=== PATIENT | female | born 1960 | race Caucasian/White ===

== ENCOUNTER 2018-11-20 23:00 | Inpatient (IN) ==
[2018-11-21] MEDS ORDERED: ALBUTEROL 2.5 MG/3 ML NEB RESP TX PRN (02:24)
[2018-11-21] MEDS ORDERED: ONDANSETRON 4 MG/2 ML VIAL IV PRN (02:24)
[2018-11-21] MEDS ORDERED: ACETAMINOPHEN 325 MG TABLET PO PRN (02:24)
[2018-11-21] MEDS ORDERED: CLORAZEPATE 7.5 MG TABLET PO PRN (02:31)
[2018-11-21] MEDS: LEVOFLOXACIN INJ 750 MG in PREMIX 1 EACH IV SCH (03:26)
[2018-11-21] MEDS: PIPERACILLIN/TAZOBACTAM 3,375 MG in SODIUM CHLORIDE 0.9% 100 ML IV SCH ×3 (05:41→22:47)
[2018-11-21 06:40] LABS: Basophils % 0.1 % (0.0-0.8); Hematocrit 32.2 VOL% (35.7-47.0); Hemoglobin 10.7 GM/DL (12.0-16.0); Immature Granulocytes % 1.1 %; Immature Granulocytes Absolute 0.23 #; Lymphocytes % 4.8 % (21.3-54.2); Mean Corpuscular HGB Conc 33.2 GM/DL (32-36); Mean Corpuscular Hemoglobin 28 PG (27-34); Mean Corpuscular Volume 83.4 FL (87-102); Mean Platelet Volume 8.6 FL (9.6-12.0); Monocytes # 1.3 10*3/uL (0.11-0.8); Monocytes % 6.1 % (1.7-12.7); Neutrophils % 87.9 % (38.7-73.9); Platelet Count 436 T/CUMM (130-400); Red Blood Count 3.86 MC/CUMM (3.8-5.5); Red Cell Distribution Width 14.1 % (9.3-17.3); White Blood Count 21.6 T/CUMM (4-12)
[2018-11-21] MEDS ORDERED: ALBUTEROL/IPRATROPIUM 3 ML NEB RESP TX SCH (07:00)
[2018-11-21 07:01] LABS: Alanine Aminotransferase 18 U/L (13-56); Albumin 2.3 G/DL (3.4-5.0); Alkaline Phosphatase 84 U/L (45-117); Aspartate Amino Transferase 21 U/L (0-37); Bilirubin,Total < 0.39 MG/DL (0.2-1.0); Blood Urea Nitrogen 12 MG/DL (7-18); Glucose 121 MG/DL (74-106); Osmolality,Calculated 262.7 MOS/KG (273-304); Potassium 3.6 MMOL/L (3.5-5.1); Sodium 131 MMOL/L (136-145); Total Protein 6.2 G/DL (6.4-8.3)
[2018-11-21 07:08] LABS: Band Neutrophils 1 % (0-10); Hypochromasia 1+; Lymphocytes 3 % (20-55); Ovalocytes Slight; Platelet Estimate Adequate; Segmented Neutrophils 91 % (50-85); Total Cells Counted 100
[2018-11-21] MEDS: LEVALBUTEROL 1.25 MG/3 ML NEB RESP TX SCH ×6 (07:23→21:55)
[2018-11-21] MEDS: CLORAZEPATE 3.75 MG TABLET PO PRN ×4 (08:50→22:48)
[2018-11-21] MEDS: DILTIAZEM CD 120 MG CAPSULE PO SCH (08:50)
[2018-11-21] MEDS: DOCUSATE SODIUM 100 MG CAPSULE PO SCH (08:50)
[2018-11-21] MEDS: PANTOPRAZOLE 40 MG TABLET PO SCH (08:50)
[2018-11-21] MEDS: ESCITALOPRAM 10 MG TABLET PO SCH (08:50)
[2018-11-21] MEDS: ENOXAPARIN 40 MG/0.4 ML SYRINGE SUBCUT SCH (08:54)
[2018-11-21] MEDS ORDERED: CETIRIZINE PO SCH (09:00)
[2018-11-21] MEDS ORDERED: PSEUDOEPHEDRINE PO SCH (09:00)
[2018-11-21] MEDS ORDERED: ETOPOSIDE 140 MG in SODIUM CHLORIDE 0.9% 500 ML IV SCH (09:00)
[2018-11-21] MEDS ORDERED: CARBOplatin 500 MG in SODIUM CHLORIDE 0.9% 250 ML IV ONE ×2 (09:30→12:00)
[2018-11-21] MEDS ORDERED: PALONOSETRON 0.25 MG/5 ML VIAL IV ONE ×2 (09:30→11:00)
[2018-11-21] MEDS ORDERED: DEXAMETHASONE 10 MG/1 ML VIAL IV ONE ×2 (09:30→11:00)
[2018-11-21] MEDS ORDERED: MAGNESIUM HYDROXIDE SUSP 30 ML UDCUP PO PRN (11:06)
[2018-11-21] MEDS ORDERED: ALUMINUM/MAGNES/SIMETH MAX STR 30 ML UDCUP PO PRN (11:06)
[2018-11-21] MEDS: ETOPOSIDE 140 MG in SODIUM CHLORIDE 0.9% 500 ML IV SCH (14:21)
[2018-11-21] MEDS ORDERED: diphenhydrAMINE CAP 50 MG CAPSULE PO PRN (17:37)
[2018-11-21] MEDS: ALLOPURINOL 300 MG TABLET PO SCH (18:32)
[2018-11-21] MEDS: FLUTICASONE 50 MCG NASAL SPRAY 16 GM BOTTLE BOTH NARES SCH (21:30)
[2018-11-21] MEDS: MELATONIN 3 MG TABLET PO SCH (21:30)
[2018-11-22] MEDS: LEVALBUTEROL 1.25 MG/3 ML NEB RESP TX SCH ×8 (00:34→22:59)
[2018-11-22] MEDS: LEVOFLOXACIN INJ 750 MG in PREMIX 1 EACH IV SCH (03:03)
[2018-11-22 04:17] LABS: Basophils % 0.1 % (0.0-0.8); Hematocrit 32.2 VOL% (35.7-47.0); Hemoglobin 10.2 GM/DL (12.0-16.0); Immature Granulocytes % 0.7 %; Lymphocytes # 0.7 10*3/uL (1.4-4.0); Lymphocytes % 4.3 % (21.3-54.2); Mean Corpuscular HGB Conc 31.7 GM/DL (32-36); Mean Corpuscular Hemoglobin 27 PG (27-34); Mean Corpuscular Volume 84.7 FL (87-102); Mean Platelet Volume 8.8 FL (9.6-12.0); Monocytes # 0.6 10*3/uL (0.11-0.8); Monocytes % 3.8 % (1.7-12.7); Neutrophils # 13.9 10*3/uL (1.4-7.4); Neutrophils % 91.1 % (38.7-73.9); Platelet Count 512 T/CUMM (130-400); Red Cell Distribution Width 14.2 % (9.3-17.3); White Blood Count 15.3 T/CUMM (4-12)
[2018-11-22 04:47] LABS: Calcium 9.2 MG/DL (8.5-10.1); Osmolality,Calculated 266.4 MOS/KG (273-304)
[2018-11-22 04:49] LABS: Band Neutrophils 1 % (0-10); Lymphocytes 4 % (20-55); Platelet Estimate Increased; Segmented Neutrophils 93 % (50-85); Total Cells Counted 100
[2018-11-22] MEDS: PIPERACILLIN/TAZOBACTAM 3,375 MG in SODIUM CHLORIDE 0.9% 100 ML IV SCH ×3 (05:49→21:53)
[2018-11-22] MEDS: DILTIAZEM CD 120 MG CAPSULE PO SCH (08:52)
[2018-11-22] MEDS: PANTOPRAZOLE 40 MG TABLET PO SCH (08:52)
[2018-11-22] MEDS: DOCUSATE SODIUM 100 MG CAPSULE PO SCH (08:52)
[2018-11-22] MEDS: ALLOPURINOL 300 MG TABLET PO SCH (08:52)
[2018-11-22] MEDS: ESCITALOPRAM 10 MG TABLET PO SCH (08:52)
[2018-11-22] MEDS: FLUTICASONE 50 MCG NASAL SPRAY 16 GM BOTTLE BOTH NARES SCH ×2 (08:53→21:52)
[2018-11-22] MEDS: ENOXAPARIN 40 MG/0.4 ML SYRINGE SUBCUT SCH (08:53)
[2018-11-22] MEDS: ETOPOSIDE 140 MG in SODIUM CHLORIDE 0.9% 500 ML IV SCH (10:50)
[2018-11-22] MEDS: MELATONIN 3 MG TABLET PO SCH (21:51)
[2018-11-22] MEDS: CLORAZEPATE 3.75 MG TABLET PO PRN (21:51)
[2018-11-23] MEDS: LEVALBUTEROL 1.25 MG/3 ML NEB RESP TX SCH ×8 (01:48→23:00)
[2018-11-23] MEDS: LEVOFLOXACIN INJ 750 MG in PREMIX 1 EACH IV SCH (03:07)
[2018-11-23] MEDS: PIPERACILLIN/TAZOBACTAM 3,375 MG in SODIUM CHLORIDE 0.9% 100 ML IV SCH ×3 (05:07→22:29)
[2018-11-23 06:14] LABS: Eosinophils % 0.4 % (0.00-10.9); Hematocrit 35.4 VOL% (35.7-47.0); Hemoglobin 11.1 GM/DL (12.0-16.0); Immature Granulocytes % 0.5 %; Immature Granulocytes Absolute 0.06 #; Lymphocytes # 1.7 10*3/uL (1.4-4.0); Mean Corpuscular HGB Conc 31.4 GM/DL (32-36); Mean Corpuscular Hemoglobin 27 PG (27-34); Mean Corpuscular Volume 84.7 FL (87-102); Mean Platelet Volume 8.6 FL (9.6-12.0); Monocytes # 0.6 10*3/uL (0.11-0.8); Monocytes % 5.6 % (1.7-12.7); Neutrophils # 8.7 10*3/uL (1.4-7.4); Neutrophils % 78.5 % (38.7-73.9); Platelet Count 507 T/CUMM (130-400); Red Blood Count 4.18 MC/CUMM (3.8-5.5); Red Cell Distribution Width 14.4 % (9.3-17.3); White Blood Count 11.1 T/CUMM (4-12)
[2018-11-23 06:35] LABS: Albumin 2.4 G/DL (3.4-5.0); Bilirubin,Direct 0.13 MG/DL (0.0-0.20); Bilirubin,Indirect 0.5 MG/DL (0.0-1.0); Bilirubin,Total 0.6 MG/DL (0.2-1.0); Calcium 9.1 MG/DL (8.5-10.1); Osmolality,Calculated 265.4 MOS/KG (273-304); Potassium 3.7 MMOL/L (3.5-5.1); Total Protein 6.2 G/DL (6.4-8.3)
[2018-11-23] MEDS: PANTOPRAZOLE 40 MG TABLET PO SCH (08:14)
[2018-11-23] MEDS: DOCUSATE SODIUM 100 MG CAPSULE PO SCH (08:14)
[2018-11-23] MEDS: ALLOPURINOL 300 MG TABLET PO SCH (08:14)
[2018-11-23] MEDS: ESCITALOPRAM 10 MG TABLET PO SCH (08:14)
[2018-11-23] MEDS: DILTIAZEM CD 120 MG CAPSULE PO SCH ×2 (08:14→20:04)
[2018-11-23] MEDS: ENOXAPARIN 40 MG/0.4 ML SYRINGE SUBCUT SCH (08:15)
[2018-11-23] MEDS: FLUTICASONE 50 MCG NASAL SPRAY 16 GM BOTTLE BOTH NARES SCH ×2 (08:22→20:09)
[2018-11-23] MEDS: ETOPOSIDE 140 MG in SODIUM CHLORIDE 0.9% 500 ML IV SCH (09:44)
[2018-11-23] MEDS ORDERED: METOPROLOL TARTRATE 5 MG/5 ML VIAL IV ONE (10:32)
[2018-11-23] MEDS: MELATONIN 3 MG TABLET PO SCH (20:05)
[2018-11-23] MEDS: CLORAZEPATE 3.75 MG TABLET PO PRN (20:16)
[2018-11-24] MEDS: LEVALBUTEROL 1.25 MG/3 ML NEB RESP TX SCH ×8 (00:58→22:06)
[2018-11-24] MEDS: LEVOFLOXACIN INJ 750 MG in PREMIX 1 EACH IV SCH (02:38)
[2018-11-24] MEDS: PIPERACILLIN/TAZOBACTAM 3,375 MG in SODIUM CHLORIDE 0.9% 100 ML IV SCH ×3 (06:18→21:19)
[2018-11-24 06:23] LABS: Basophils % 0.1 % (0.0-0.8); Eosinophils # 0.1 10*3/uL (0.0-0.87); Eosinophils % 0.9 % (0.00-10.9); Hematocrit 34.3 VOL% (35.7-47.0); Hemoglobin 10.9 GM/DL (12.0-16.0); Immature Granulocytes % 0.6 %; Immature Granulocytes Absolute 0.06 #; Lymphocytes % 9.9 % (21.3-54.2); Mean Corpuscular HGB Conc 31.8 GM/DL (32-36); Mean Corpuscular Hemoglobin 27 PG (27-34); Mean Corpuscular Volume 85.1 FL (87-102); Mean Platelet Volume 8.6 FL (9.6-12.0); Monocytes # 0.1 10*3/uL (0.11-0.8); Monocytes % 1.1 % (1.7-12.7); Neutrophils # 8.6 10*3/uL (1.4-7.4); Neutrophils % 87.4 % (38.7-73.9); Platelet Count 422 T/CUMM (130-400); Red Blood Count 4.03 MC/CUMM (3.8-5.5); Red Cell Distribution Width 14.3 % (9.3-17.3); White Blood Count 9.8 T/CUMM (4-12)
[2018-11-24 06:33] LABS: Calcium 8.6 MG/DL (8.5-10.1); Osmolality,Calculated 257.8 MOS/KG (273-304); Potassium 3.7 MMOL/L (3.5-5.1)
[2018-11-24] MEDS: METOPROLOL SUCCINATE XL 25 MG TABLET PO SCH (08:33)
[2018-11-24] MEDS: ALLOPURINOL 300 MG TABLET PO SCH (08:33)
[2018-11-24] MEDS: DOCUSATE SODIUM 100 MG CAPSULE PO SCH (08:33)
[2018-11-24] MEDS: ESCITALOPRAM 10 MG TABLET PO SCH (08:33)
[2018-11-24] MEDS: PANTOPRAZOLE 40 MG TABLET PO SCH (08:33)
[2018-11-24] MEDS: DILTIAZEM CD 120 MG CAPSULE PO SCH ×2 (08:34→21:17)
[2018-11-24] MEDS: ENOXAPARIN 40 MG/0.4 ML SYRINGE SUBCUT SCH (08:38)
[2018-11-24] MEDS: FLUTICASONE 50 MCG NASAL SPRAY 16 GM BOTTLE BOTH NARES SCH ×2 (08:44→21:19)
[2018-11-24] MEDS ORDERED: ASPIRIN EC 81 MG TABLET PO SCH (09:00)
[2018-11-24] MEDS: CLORAZEPATE 3.75 MG TABLET PO PRN (21:17)
[2018-11-24] MEDS: MELATONIN 3 MG TABLET PO SCH (21:17)
[2018-11-25] MEDS: LEVALBUTEROL 1.25 MG/3 ML NEB RESP TX SCH ×8 (00:53→22:27)
[2018-11-25] MEDS: LEVOFLOXACIN INJ 750 MG in PREMIX 1 EACH IV SCH (03:18)
[2018-11-25] MEDS: PIPERACILLIN/TAZOBACTAM 3,375 MG in SODIUM CHLORIDE 0.9% 100 ML IV SCH ×3 (05:20→21:39)
[2018-11-25 06:02] LABS: Basophils % 0.1 % (0.0-0.8); Eosinophils # 0.5 10*3/uL (0.0-0.87); Eosinophils % 4.2 % (0.00-10.9); Hematocrit 32.1 VOL% (35.7-47.0); Hemoglobin 10.2 GM/DL (12.0-16.0); Immature Granulocytes % 1.1 %; Immature Granulocytes Absolute 0.12 #; Lymphocytes # 1.2 10*3/uL (1.4-4.0); Lymphocytes % 10.8 % (21.3-54.2); Mean Corpuscular HGB Conc 31.8 GM/DL (32-36); Mean Corpuscular Hemoglobin 27 PG (27-34); Mean Platelet Volume 8.9 FL (9.6-12.0); Monocytes # 0.1 10*3/uL (0.11-0.8); Monocytes % 0.8 % (1.7-12.7); Neutrophils # 9.2 10*3/uL (1.4-7.4); Platelet Count 390 T/CUMM (130-400); Red Blood Count 3.82 MC/CUMM (3.8-5.5); Red Cell Distribution Width 14.1 % (9.3-17.3); White Blood Count 11.1 T/CUMM (4-12)
[2018-11-25 06:19] LABS: Calcium 8.6 MG/DL (8.5-10.1); Osmolality,Calculated 252.4 MOS/KG (273-304); Potassium 3.7 MMOL/L (3.5-5.1)
[2018-11-25 08:23] LABS: Platelet Estimate Normal
[2018-11-25] MEDS: ENOXAPARIN 40 MG/0.4 ML SYRINGE SUBCUT SCH (09:27)
[2018-11-25] MEDS: METOPROLOL SUCCINATE XL 25 MG TABLET PO SCH (09:27)
[2018-11-25] MEDS: DOCUSATE SODIUM 100 MG CAPSULE PO SCH (09:27)
[2018-11-25] MEDS: ALLOPURINOL 300 MG TABLET PO SCH (09:27)
[2018-11-25] MEDS: PANTOPRAZOLE 40 MG TABLET PO SCH (09:27)
[2018-11-25] MEDS: ESCITALOPRAM 10 MG TABLET PO SCH (09:27)
[2018-11-25] MEDS: DILTIAZEM CD 120 MG CAPSULE PO SCH ×2 (09:27→21:36)
[2018-11-25] MEDS: SODIUM CHLORIDE 0.9% 1,000 ML IV SCH (09:28)
[2018-11-25] MEDS: FLUTICASONE 50 MCG NASAL SPRAY 16 GM BOTTLE BOTH NARES SCH ×2 (09:28→21:38)
[2018-11-25] MEDS: MELATONIN 3 MG TABLET PO SCH (21:36)
[2018-11-25] MEDS: CLORAZEPATE 3.75 MG TABLET PO PRN (21:37)
[2018-11-26] MEDS: LEVALBUTEROL 1.25 MG/3 ML NEB RESP TX SCH ×8 (01:31→22:42)
[2018-11-26] MEDS: LEVOFLOXACIN INJ 750 MG in PREMIX 1 EACH IV SCH (03:08)
[2018-11-26 06:17] LABS: Basophils % 0.6 % (0.0-0.8); Eosinophils # 0.3 10*3/uL (0.0-0.87); Eosinophils % 4.9 % (0.00-10.9); Hematocrit 30.6 VOL% (35.7-47.0); Hemoglobin 9.8 GM/DL (12.0-16.0); Immature Granulocytes % 1.6 %; Lymphocytes % 15.2 % (21.3-54.2); Mean Corpuscular Hemoglobin 27 PG (27-34); Mean Corpuscular Volume 84.8 FL (87-102); Mean Platelet Volume 8.8 FL (9.6-12.0); Monocytes % 0.6 % (1.7-12.7); Neutrophils # 4.9 10*3/uL (1.4-7.4); Neutrophils % 77.1 % (38.7-73.9); Platelet Count 344 T/CUMM (130-400); Red Blood Count 3.61 MC/CUMM (3.8-5.5); White Blood Count 6.3 T/CUMM (4-12)
[2018-11-26] MEDS: PIPERACILLIN/TAZOBACTAM 3,375 MG in SODIUM CHLORIDE 0.9% 100 ML IV SCH (06:28)
[2018-11-26 06:53] LABS: Calcium 8.6 MG/DL (8.5-10.1); Osmolality,Calculated 258.8 MOS/KG (273-304); Potassium 4.1 MMOL/L (3.5-5.1)
[2018-11-26 06:58] LABS: Hypochromasia 1+; Microcytosis 1+
[2018-11-26 06:59] LABS: Platelet Estimate Normal; Target Cells Few
[2018-11-26] MEDS: ENOXAPARIN 40 MG/0.4 ML SYRINGE SUBCUT SCH (08:41)
[2018-11-26] MEDS: ESCITALOPRAM 10 MG TABLET PO SCH (08:41)
[2018-11-26] MEDS: METOPROLOL SUCCINATE XL 25 MG TABLET PO SCH (08:42)
[2018-11-26] MEDS: DOCUSATE SODIUM 100 MG CAPSULE PO SCH (08:42)
[2018-11-26] MEDS: PANTOPRAZOLE 40 MG TABLET PO SCH (08:42)
[2018-11-26] MEDS: FLUTICASONE 50 MCG NASAL SPRAY 16 GM BOTTLE BOTH NARES SCH ×2 (08:42→20:51)
[2018-11-26] MEDS: DILTIAZEM CD 120 MG CAPSULE PO SCH ×2 (08:42→20:50)
[2018-11-26] MEDS: SODIUM CHLORIDE 0.9% 1,000 ML IV SCH (18:01)
[2018-11-26] MEDS: MELATONIN 3 MG TABLET PO SCH (20:50)
[2018-11-26] MEDS: CLORAZEPATE 3.75 MG TABLET PO PRN (21:00)
[2018-11-27] MEDS: LEVALBUTEROL 1.25 MG/3 ML NEB RESP TX SCH ×8 (00:34→22:51)
[2018-11-27 05:50] LABS: Basophils # 0.1 10*3/uL (0.0-0.2); Basophils % 1.1 % (0.0-0.8); Eosinophils # 0.3 10*3/uL (0.0-0.87); Eosinophils % 5.5 % (0.00-10.9); Hematocrit 28.1 VOL% (35.7-47.0); Hemoglobin 8.7 GM/DL (12.0-16.0); Immature Granulocytes % 3.3 %; Immature Granulocytes Absolute 0.15 #; Lymphocytes # 0.8 10*3/uL (1.4-4.0); Lymphocytes % 17.3 % (21.3-54.2); Mean Corpuscular Hemoglobin 27 PG (27-34); Mean Corpuscular Volume 85.7 FL (87-102); Mean Platelet Volume 8.9 FL (9.6-12.0); Monocytes % 0.7 % (1.7-12.7); Neutrophils # 3.3 10*3/uL (1.4-7.4); Neutrophils % 72.1 % (38.7-73.9); Platelet Count 339 T/CUMM (130-400); Red Blood Count 3.28 MC/CUMM (3.8-5.5); Red Cell Distribution Width 14.2 % (9.3-17.3); White Blood Count 4.6 T/CUMM (4-12)
[2018-11-27 06:09] LABS: Calcium 8.4 MG/DL (8.5-10.1); Osmolality,Calculated 258.7 MOS/KG (273-304); Potassium 3.8 MMOL/L (3.5-5.1)
[2018-11-27 06:58] LABS: Platelet Estimate Adequate
[2018-11-27 06:59] LABS: Hypochromasia 1+; Microcytosis 1+
[2018-11-27] MEDS: DILTIAZEM CD 120 MG CAPSULE PO SCH ×2 (09:30→20:39)
[2018-11-27] MEDS: SODIUM CHLORIDE 0.9% 1,000 ML IV SCH (15:03)
[2018-11-27] MEDS: ESCITALOPRAM 10 MG TABLET PO SCH (15:05)
[2018-11-27] MEDS: DOCUSATE SODIUM 100 MG CAPSULE PO SCH (15:05)
[2018-11-27] MEDS: METOPROLOL SUCCINATE XL 25 MG TABLET PO SCH (15:05)
[2018-11-27] MEDS: ENOXAPARIN 40 MG/0.4 ML SYRINGE SUBCUT SCH (15:07)
[2018-11-27] MEDS: FLUTICASONE 50 MCG NASAL SPRAY 16 GM BOTTLE BOTH NARES SCH ×2 (15:08→20:40)
[2018-11-27] MEDS: PANTOPRAZOLE 40 MG TABLET PO SCH (15:08)
[2018-11-27 19:00] LABS: Alanine Aminotransferase 15 U/L (13-56); Albumin 2.1 G/DL (3.4-5.0); Alkaline Phosphatase 60 U/L (45-117); Aspartate Amino Transferase 31 U/L (0-37); Bilirubin,Total < 0.39 MG/DL (0.2-1.0); Blood Urea Nitrogen 5 MG/DL (7-18); Calcium 8.5 MG/DL (8.5-10.1); Glucose 95 MG/DL (74-106); Osmolality,Calculated 253.1 MOS/KG (273-304); Potassium 3.9 MMOL/L (3.5-5.1); Sodium 128 MMOL/L (136-145); Total Protein 5.9 G/DL (6.4-8.3)
[2018-11-27] MEDS: guaiFENesin 200 MG/10 ML UDCUP PO PRN (19:05)
[2018-11-27] MEDS: MELATONIN 3 MG TABLET PO SCH (20:39)
[2018-11-27] MEDS: CLORAZEPATE 3.75 MG TABLET PO PRN (20:40)
[2018-11-28] MEDS: LEVALBUTEROL 1.25 MG/3 ML NEB RESP TX SCH ×7 (01:04→22:26)
[2018-11-28 06:05] LABS: Eosinophils # 0.4 10*3/uL (0.0-0.87); Eosinophils % 9.5 % (0.00-10.9); Hematocrit 29.7 VOL% (35.7-47.0); Hemoglobin 9.5 GM/DL (12.0-16.0); Immature Granulocytes % 4.9 %; Immature Granulocytes Absolute 0.19 #; Lymphocytes # 0.8 10*3/uL (1.4-4.0); Lymphocytes % 21.5 % (21.3-54.2); Mean Corpuscular Hemoglobin 27 PG (27-34); Mean Corpuscular Volume 83.9 FL (87-102); Monocytes # 0.1 10*3/uL (0.11-0.8); Monocytes % 1.5 % (1.7-12.7); Neutrophils # 2.4 10*3/uL (1.4-7.4); Neutrophils % 61.6 % (38.7-73.9); Platelet Count 295 T/CUMM (130-400); Red Blood Count 3.54 MC/CUMM (3.8-5.5); Red Cell Distribution Width 13.9 % (9.3-17.3); White Blood Count 3.9 T/CUMM (4-12)
[2018-11-28 06:34] LABS: Calcium 8.6 MG/DL (8.5-10.1); Osmolality,Calculated 250.2 MOS/KG (273-304); Potassium 3.8 MMOL/L (3.5-5.1)
[2018-11-28 07:04] LABS: Hypochromasia 1+; Microcytosis 1+; Ovalocytes Slight; Platelet Estimate Adequate
[2018-11-28] MEDS: DILTIAZEM CD 120 MG CAPSULE PO SCH ×2 (08:30→21:34)
[2018-11-28] MEDS: DOCUSATE SODIUM 100 MG CAPSULE PO SCH (08:30)
[2018-11-28] MEDS: METOPROLOL SUCCINATE XL 25 MG TABLET PO SCH (08:30)
[2018-11-28] MEDS: PANTOPRAZOLE 40 MG TABLET PO SCH (08:30)
[2018-11-28] MEDS: FLUCONAZOLE 200 MG TABLET PO SCH (08:30)
[2018-11-28] MEDS: ESCITALOPRAM 10 MG TABLET PO SCH (08:30)
[2018-11-28] MEDS: ENOXAPARIN 40 MG/0.4 ML SYRINGE SUBCUT SCH (08:30)
[2018-11-28] MEDS: FLUTICASONE 50 MCG NASAL SPRAY 16 GM BOTTLE BOTH NARES SCH ×2 (08:34→21:34)
[2018-11-28] MEDS: CLORAZEPATE 3.75 MG TABLET PO PRN (13:07)
[2018-11-28] MEDS: SODIUM CHLORIDE 0.9% 1,000 ML IV SCH (13:08)
[2018-11-28] MEDS: guaiFENesin 200 MG/10 ML UDCUP PO PRN (15:37)
[2018-11-28] MEDS: MELATONIN 3 MG TABLET PO SCH (21:34)
[2018-11-29] MEDS: LEVALBUTEROL 1.25 MG/3 ML NEB RESP TX SCH ×8 (01:08→23:32)
[2018-11-29 05:14] LABS: Basophils % 0.7 % (0.0-0.8); Eosinophils # 0.3 10*3/uL (0.0-0.87); Eosinophils % 10.2 % (0.00-10.9); Hematocrit 32.1 VOL% (35.7-47.0); Hemoglobin 10.1 GM/DL (12.0-16.0); Immature Granulocytes % 1.3 %; Immature Granulocytes Absolute 0.04 #; Lymphocytes # 1.1 10*3/uL (1.4-4.0); Lymphocytes % 34.4 % (21.3-54.2); Mean Corpuscular HGB Conc 31.5 GM/DL (32-36); Mean Corpuscular Hemoglobin 26 PG (27-34); Mean Platelet Volume 8.6 FL (9.6-12.0); Monocytes # 0.1 10*3/uL (0.11-0.8); Monocytes % 2.6 % (1.7-12.7); Neutrophils # 1.6 10*3/uL (1.4-7.4); Neutrophils % 50.8 % (38.7-73.9); Platelet Count 249 T/CUMM (130-400); Red Blood Count 3.82 MC/CUMM (3.8-5.5); Red Cell Distribution Width 13.7 % (9.3-17.3); White Blood Count 3.1 T/CUMM (4-12)
[2018-11-29 05:39] LABS: Calcium 8.7 MG/DL (8.5-10.1); Osmolality,Calculated 252.2 MOS/KG (273-304); Potassium 3.7 MMOL/L (3.5-5.1)
[2018-11-29 05:56] LABS: Eosinophils 8 % (0-10); Hypochromasia 1+; Lymphocytes 38 % (20-55); Platelet Estimate Adequate; Segmented Neutrophils 48 % (50-85); Total Cells Counted 100
[2018-11-29 05:57] LABS: Atypical Lymphocytes Few; Microcytosis 1+
[2018-11-29] MEDS: CLORAZEPATE 3.75 MG TABLET PO PRN (07:55)
[2018-11-29] MEDS: NYSTATIN 500,000 UNIT/5 ML UDCUP SWISH/SWAL SCH (08:35)
[2018-11-29] MEDS: ESCITALOPRAM 10 MG TABLET PO SCH (08:38)
[2018-11-29] MEDS: DILTIAZEM CD 120 MG CAPSULE PO SCH ×2 (08:39→20:49)
[2018-11-29] MEDS: METOPROLOL SUCCINATE XL 25 MG TABLET PO SCH (08:39)
[2018-11-29] MEDS: PANTOPRAZOLE 40 MG TABLET PO SCH (08:39)
[2018-11-29] MEDS: DOCUSATE SODIUM 100 MG CAPSULE PO SCH (08:39)
[2018-11-29] MEDS: FLUCONAZOLE 200 MG TABLET PO SCH (08:39)
[2018-11-29] MEDS: FLUTICASONE 50 MCG NASAL SPRAY 16 GM BOTTLE BOTH NARES SCH ×2 (08:39→20:50)
[2018-11-29] MEDS: ENOXAPARIN 40 MG/0.4 ML SYRINGE SUBCUT SCH (08:39)
[2018-11-29] MEDS: SODIUM CHLORIDE 0.9% 1,000 ML IV SCH (08:43)
[2018-11-29] MEDS ORDERED: SODIUM CHLORIDE 0.65% NASAL SPRAY 45 ML BOTTLE BOTH NARES PRN (08:52)
[2018-11-29] MEDS: FILGRASTIM-SNDZ 300 MCG/0.5 ML SYRINGE SUBCUT SCH (10:06)
[2018-11-29] MEDS: MELATONIN 3 MG TABLET PO SCH (20:49)
[2018-11-30] MEDS: LEVALBUTEROL 1.25 MG/3 ML NEB RESP TX SCH ×3 (02:48→08:33)
[2018-11-30] MEDS: SODIUM CHLORIDE 0.9% 1,000 ML IV SCH (03:00)
[2018-11-30 04:58] LABS: Basophils % 0.5 % (0.0-0.8); Eosinophils # 0.3 10*3/uL (0.0-0.87); Eosinophils % 6.9 % (0.00-10.9); Hematocrit 26.7 VOL% (35.7-47.0); Hemoglobin 8.6 GM/DL (12.0-16.0); Immature Granulocytes % 0.8 %; Immature Granulocytes Absolute 0.03 #; Lymphocytes # 0.9 10*3/uL (1.4-4.0); Lymphocytes % 24.2 % (21.3-54.2); Mean Corpuscular HGB Conc 32.2 GM/DL (32-36); Mean Corpuscular Hemoglobin 27 PG (27-34); Mean Corpuscular Volume 83.2 FL (87-102); Mean Platelet Volume 9.1 FL (9.6-12.0); Monocytes # 0.2 10*3/uL (0.11-0.8); Monocytes % 4.9 % (1.7-12.7); Neutrophils # 2.3 10*3/uL (1.4-7.4); Neutrophils % 62.7 % (38.7-73.9); Platelet Count 222 T/CUMM (130-400); Red Blood Count 3.21 MC/CUMM (3.8-5.5); Red Cell Distribution Width 13.6 % (9.3-17.3); White Blood Count 3.6 T/CUMM (4-12)
[2018-11-30 05:17] LABS: Calcium 8.6 MG/DL (8.5-10.1); Osmolality,Calculated 249.4 MOS/KG (273-304); Potassium 3.8 MMOL/L (3.5-5.1)
[2018-11-30 05:23] LABS: Hypochromasia 1+; Platelet Estimate Adequate
[2018-11-30 05:24] LABS: Microcytosis 1+
[2018-11-30] MEDS: ESCITALOPRAM 10 MG TABLET PO SCH (08:45)
[2018-11-30] MEDS: DOCUSATE SODIUM 100 MG CAPSULE PO SCH (08:45)
[2018-11-30] MEDS: PANTOPRAZOLE 40 MG TABLET PO SCH (08:45)
[2018-11-30] MEDS: DILTIAZEM CD 120 MG CAPSULE PO SCH (08:45)
[2018-11-30] MEDS: FLUCONAZOLE 200 MG TABLET PO SCH (08:45)
[2018-11-30] MEDS: METOPROLOL SUCCINATE XL 25 MG TABLET PO SCH (08:45)
[2018-11-30] MEDS: ENOXAPARIN 40 MG/0.4 ML SYRINGE SUBCUT SCH (08:49)
[2018-11-30] MEDS: FILGRASTIM-SNDZ 300 MCG/0.5 ML SYRINGE SUBCUT SCH (08:50)
[2018-11-30] MEDS: FLUTICASONE 50 MCG NASAL SPRAY 16 GM BOTTLE BOTH NARES SCH (08:59)
[2018-11-30] MEDS ORDERED: ALBUTEROL 2.5 MG/3 ML NEB RESP TX SCH (10:00)
[2018-11-30 13:16] VITALS: BP 116/71
== END 2018-11-30 14:10 | disposition home or self-care (01) | DRG 136 ==
LOC: SUATTDRO 11-21 01:44 → N.CC 11-21 01:44 → N.4E 11-21 10:39
PROVIDERS: ADMIT Internal Medicine; ATTEND Hospitalist

== ENCOUNTER 2018-12-17 16:31 | Inpatient (IN) ==
[2018-12-17 17:09] LABS: Basophils % 0.6 % (0.0-0.8); Eosinophils % 0.6 % (0.00-10.9); Hematocrit 37.5 VOL% (35.7-47.0); Hemoglobin 12.1 GM/DL (12.0-16.0); Immature Granulocytes % 0.7 %; Immature Granulocytes Absolute 0.05 #; Lymphocytes # 0.5 10*3/uL (1.4-4.0); Lymphocytes % 6.8 % (21.3-54.2); Mean Corpuscular HGB Conc 32.3 GM/DL (32-36); Mean Corpuscular Hemoglobin 27 PG (27-34); Mean Corpuscular Volume 83.1 FL (87-102); Mean Platelet Volume 8.7 FL (9.6-12.0); Monocytes # 0.1 10*3/uL (0.11-0.8); Monocytes % 1.6 % (1.7-12.7); Neutrophils # 6.1 10*3/uL (1.4-7.4); Neutrophils % 89.7 % (38.7-73.9); Platelet Count 417 T/CUMM (130-400); Red Blood Count 4.51 MC/CUMM (3.8-5.5); White Blood Count 6.8 T/CUMM (4-12)
[2018-12-17 17:29] LABS: PT Patient Result 10.8 SECS
[2018-12-17 17:38] LABS: Alanine Aminotransferase 17 U/L (13-56); Albumin 3.2 G/DL (3.4-5.0); Alkaline Phosphatase 87 U/L (45-117); Aspartate Amino Transferase 24 U/L (0-37); Blood Urea Nitrogen 16 MG/DL (7-18); Calcium 9.6 MG/DL (8.5-10.1); Glucose 109 MG/DL (74-106); Osmolality,Calculated 274.8 MOS/KG (273-304); Potassium 3.3 MMOL/L (3.5-5.1); Sodium 137 MMOL/L (136-145); Total Protein 7.4 G/DL (6.4-8.3); Troponin I < 0.015 NG/ML (0.00-0.045)
[2018-12-17] MEDS ORDERED: SODIUM CHLORIDE 0.9% 2,000 ML IV STA (18:53)
[2018-12-17] MEDS ORDERED: LORazepam 2 MG/1 ML VIAL IV STA (18:54)
[2018-12-17] MEDS ORDERED: METOCLOPRAMIDE 10 MG/2 ML VIAL IV STA (18:54)
[2018-12-17] MEDS ORDERED: ACETAMINOPHEN 325 MG TABLET PO PRN (21:41)
[2018-12-17] MEDS ORDERED: LORazepam 2 MG/1 ML VIAL IV PRN (21:57)
[2018-12-17] MEDS ORDERED: CLORAZEPATE 7.5 MG TABLET PO PRN (22:02)
[2018-12-17] MEDS ORDERED: PSEUDOEPHEDRINE 30 MG TABLET PO PRN (22:02)
[2018-12-17] MEDS ORDERED: MELATONIN 3 MG TABLET PO PRN (22:02)
[2018-12-17] MEDS ORDERED: MAGNESIUM HYDROXIDE SUSP 30 ML UDCUP PO PRN (22:02)
[2018-12-17] MEDS ORDERED: ALBUTEROL/IPRATROPIUM 3 ML NEB RESP TX PRN (22:02)
[2018-12-17] MEDS ORDERED: FLUTICASONE 50 MCG NASAL SPRAY 16 GM BOTTLE BOTH NARES PRN (22:02)
[2018-12-17] MEDS ORDERED: SODIUM CHLORIDE 0.65% NASAL SPRAY 45 ML BOTTLE BOTH NARES PRN (22:02)
[2018-12-17] MEDS ORDERED: HYDROmorphone 2 MG/1 ML VIAL IV PRN (22:06)
[2018-12-17] MEDS ORDERED: POTASSIUM CHLORIDE RIDER 10 MEQ in PREMIX 1 EACH IV PRN (22:27)
[2018-12-17] MEDS ORDERED: CETIRIZINE 10 MG TABLET PO PRN (22:45)
[2018-12-17] MEDS: SODIUM CHLORIDE 0.9% 1,000 ML IV SCH (23:17)
[2018-12-17] MEDS: LEVOFLOXACIN INJ 750 MG in PREMIX 1 EACH IV SCH (23:17)
[2018-12-17] MEDS: PANTOPRAZOLE 40 MG VIAL IV SCH (23:32)
[2018-12-17] MEDS: METOPROLOL SUCCINATE XL 25 MG TABLET PO SCH (23:33)
[2018-12-17] MEDS: ENOXAPARIN 40 MG/0.4 ML SYRINGE SUBCUT SCH (23:34)
[2018-12-18] MEDS: PIPERACILLIN/TAZOBACTAM 3,375 MG in SODIUM CHLORIDE 0.9% 100 ML IV SCH ×3 (02:02→17:47)
[2018-12-18 04:58] LABS: Basophils % 0.7 % (0.0-0.8); Eosinophils % 0.5 % (0.00-10.9); Hematocrit 29.7 VOL% (35.7-47.0); Hemoglobin 9.6 GM/DL (12.0-16.0); Immature Granulocytes % 1.6 %; Immature Granulocytes Absolute 0.07 #; Lymphocytes # 0.3 10*3/uL (1.4-4.0); Lymphocytes % 6.2 % (21.3-54.2); Mean Corpuscular HGB Conc 32.3 GM/DL (32-36); Mean Corpuscular Hemoglobin 27 PG (27-34); Mean Corpuscular Volume 83.9 FL (87-102); Mean Platelet Volume 9.3 FL (9.6-12.0); Monocytes # 0.1 10*3/uL (0.11-0.8); Monocytes % 2.3 % (1.7-12.7); Neutrophils # 3.9 10*3/uL (1.4-7.4); Neutrophils % 88.7 % (38.7-73.9); Platelet Count 296 T/CUMM (130-400); Red Blood Count 3.54 MC/CUMM (3.8-5.5); White Blood Count 4.3 T/CUMM (4-12)
[2018-12-18 05:13] LABS: Calcium 8.3 MG/DL (8.5-10.1); Osmolality,Calculated 277.4 MOS/KG (273-304); Potassium 3.2 MMOL/L (3.5-5.1)
[2018-12-18] MEDS: DOCUSATE SODIUM 100 MG CAPSULE PO SCH (08:43)
[2018-12-18] MEDS: DILTIAZEM CD 120 MG CAPSULE PO SCH (08:44)
[2018-12-18] MEDS: ESCITALOPRAM 10 MG TABLET PO SCH (08:44)
[2018-12-18] MEDS: POTASSIUM CHLORIDE INJ 10 MEQ in LACTATED RINGERS 1,000 ML IV SCH (09:21)
[2018-12-18] MEDS: PROMETHAZINE INJ 25 MG in SODIUM CHLORIDE 0.9% 50 ML IV PRN (09:48)
[2018-12-18] MEDS: PANTOPRAZOLE 40 MG VIAL IV SCH ×2 (10:39→20:52)
[2018-12-18] MEDS ORDERED: MYLANTA/LIDO VISC 2:1 300 ML BOTTLE SWISH/SWAL PRN (14:41)
[2018-12-18] MEDS: MYLANTA/LIDO VISC/DIPH 300 ML BOTTLE SWISH/SWAL SCH ×2 (17:37→20:55)
[2018-12-18] MEDS: ONDANSETRON 4 MG/2 ML VIAL IV PRN (17:41)
[2018-12-18] MEDS: METOPROLOL SUCCINATE XL 25 MG TABLET PO SCH (20:51)
[2018-12-18] MEDS: LEVOFLOXACIN INJ 750 MG in PREMIX 1 EACH IV SCH (23:08)
[2018-12-18] MEDS: ENOXAPARIN 40 MG/0.4 ML SYRINGE SUBCUT SCH (23:11)
[2018-12-19] MEDS: PIPERACILLIN/TAZOBACTAM 3,375 MG in SODIUM CHLORIDE 0.9% 100 ML IV SCH ×3 (01:03→17:42)
[2018-12-19] MEDS: ONDANSETRON 4 MG/2 ML VIAL IV PRN ×2 (02:45→13:16)
[2018-12-19 04:02] LABS: Hematocrit 30.6 VOL% (35.7-47.0); Hemoglobin 9.5 GM/DL (12.0-16.0); Immature Granulocytes % 1.7 %; Immature Granulocytes Absolute 0.05 #; Lymphocytes # 0.4 10*3/uL (1.4-4.0); Lymphocytes % 12.1 % (21.3-54.2); Mean Corpuscular Hemoglobin 27 PG (27-34); Mean Corpuscular Volume 85.5 FL (87-102); Mean Platelet Volume 9.4 FL (9.6-12.0); Monocytes # 0.1 10*3/uL (0.11-0.8); Monocytes % 4.8 % (1.7-12.7); Neutrophils # 2.3 10*3/uL (1.4-7.4); Neutrophils % 79.4 % (38.7-73.9); Platelet Count 258 T/CUMM (130-400); Red Blood Count 3.58 MC/CUMM (3.8-5.5); White Blood Count 2.9 T/CUMM (4-12)
[2018-12-19 04:19] LABS: Osmolality,Calculated 278.3 MOS/KG (273-304); Potassium 3.4 MMOL/L (3.5-5.1)
[2018-12-19] MEDS: PROMETHAZINE INJ 25 MG in SODIUM CHLORIDE 0.9% 50 ML IV PRN (07:02)
[2018-12-19] MEDS: MYLANTA/LIDO VISC/DIPH 300 ML BOTTLE SWISH/SWAL SCH ×3 (07:30→17:43)
[2018-12-19] MEDS ORDERED: FILGRASTIM-SNDZ 300 MCG/0.5 ML SYRINGE SUBCUT SCH (09:00)
[2018-12-19] MEDS: DILTIAZEM CD 120 MG CAPSULE PO SCH (09:33)
[2018-12-19] MEDS: DOCUSATE SODIUM 100 MG CAPSULE PO SCH (09:35)
[2018-12-19] MEDS: ESCITALOPRAM 10 MG TABLET PO SCH (09:35)
[2018-12-19] MEDS: POTASSIUM CHLORIDE INJ 10 MEQ in LACTATED RINGERS 1,000 ML IV SCH ×2 (10:51→17:44)
[2018-12-19] MEDS: PANTOPRAZOLE 40 MG VIAL IV SCH (10:52)
[2018-12-19 16:05] VITALS: BP 90/60
[2018-12-19] MEDS: SODIUM CHLORIDE 0.9% 1,000 ML IV SCH (17:44)
== END 2018-12-19 17:10 | disposition home or self-care (01) | DRG 249 ==
LOC: N.ED 16:31 → N.EDINP 16:31 → N.4E 22:35
PROVIDERS: ADMIT Family Medicine; ATTEND Family Medicine

== ENCOUNTER 2018-12-20 14:34 | Observation (INO) ==
[2018-12-20 14:57] LABS: Basophils % 0.5 % (0.0-0.8); Eosinophils # 0.1 10*3/uL (0.0-0.87); Eosinophils % 0.6 % (0.00-10.9); Hematocrit 30.4 VOL% (35.7-47.0); Hemoglobin 9.7 GM/DL (12.0-16.0); Immature Granulocytes % 2.5 %; Lymphocytes # 0.4 10*3/uL (1.4-4.0); Lymphocytes % 5.5 % (21.3-54.2); Mean Corpuscular HGB Conc 31.9 GM/DL (32-36); Mean Corpuscular Hemoglobin 27 PG (27-34); Mean Corpuscular Volume 84.2 FL (87-102); Mean Platelet Volume 8.8 FL (9.6-12.0); Monocytes # 0.4 10*3/uL (0.11-0.8); Monocytes % 4.9 % (1.7-12.7); Neutrophils # 6.9 10*3/uL (1.4-7.4); Platelet Count 181 T/CUMM (130-400); Red Blood Count 3.61 MC/CUMM (3.8-5.5); Red Cell Distribution Width 15.1 % (9.3-17.3)
[2018-12-20 15:18] LABS: Albumin 2.6 G/DL (3.4-5.0); Bilirubin,Total 0.9 MG/DL (0.2-1.0); Osmolality,Calculated 278.3 MOS/KG (273-304); Potassium 3.4 MMOL/L (3.5-5.1); Total Protein 6.1 G/DL (6.4-8.3)
[2018-12-20 15:47] LABS: Band Neutrophils 2 % (0-10); Lymphocytes 4 % (20-55); Segmented Neutrophils 90 % (50-85); Total Cells Counted 100
[2018-12-20 15:48] LABS: Platelet Estimate Adequate
[2018-12-20 15:53] LABS: Apearance,Urine CLOUDY (Clear); Bilirubin,Urine Negative (Negative); Blood, Urine Negative (Negative); Calcium Oxalate Crystals,Urine Occasional /HPF (Few); Glucose,Urine (UA) Negative (Negative); Ketones,Urine 20 mg/dL (Negative); Mucus,Urine Many /LPF (Occasional); Nitrite,Urine Negative (Negative); Protein,Urine Negative; RBC,Urine 3 /HPF (0-4); Squamous Epithelial Cell,Urine Occasional /HPF (0-10); Urine Color Amber (Yellow); Urine Specific Gravity 1.024 (1.001-1.035); WBC,Urine 3 /HPF (0-6)
[2018-12-20 16:12] LABS: Barbiturates Screen,Urine Negative (Negative); Benzodiazepines Screen,Urine Positive (Negative); Cannabinoid Screen,Urine Negative (Negative); Opiate Screen,Urine Positive (Negative); Phencyclidine Screen,Urine Positive (Negative)
[2018-12-20] MEDS ORDERED: ACETAMINOPHEN 325 MG TABLET PO PRN (16:19)
[2018-12-20] MEDS ORDERED: PROMETHAZINE 25 MG/1 ML VIAL IM PRN (16:19)
[2018-12-20] MEDS ORDERED: ALBUTEROL/IPRATROPIUM 3 ML NEB RESP TX PRN (16:21)
[2018-12-20] MEDS ORDERED: SODIUM CHLORIDE 0.65% NASAL SPRAY 45 ML BOTTLE BOTH NARES PRN (16:21)
[2018-12-20] MEDS ORDERED: PSEUDOEPHEDRINE PO PRN (16:21)
[2018-12-20] MEDS ORDERED: CETIRIZINE PO PRN (16:21)
[2018-12-20] MEDS ORDERED: PROMETHAZINE 25 MG TABLET PO PRN (16:21)
[2018-12-20] MEDS ORDERED: FLUTICASONE 50 MCG NASAL SPRAY 16 GM BOTTLE BOTH NARES PRN (16:21)
[2018-12-20] MEDS ORDERED: MAGNESIUM HYDROXIDE SUSP 30 ML UDCUP PO PRN (16:21)
[2018-12-20] MEDS ORDERED: POTASSIUM CHLORIDE 20 MEQ TABLET PO ONE (17:12)
[2018-12-20] MEDS: ONDANSETRON 4 MG/2 ML VIAL IV PRN (17:57)
[2018-12-20] MEDS: SODIUM CHLORIDE 0.9% 1,000 ML IV SCH (20:42)
[2018-12-20] MEDS: CLORAZEPATE 3.75 MG TABLET PO PRN (20:56)
[2018-12-20] MEDS: METOPROLOL SUCCINATE XL 25 MG TABLET PO SCH ×2 (20:56→22:36)
[2018-12-21] MEDS: SODIUM CHLORIDE 0.9% 1,000 ML IV SCH ×3 (04:10→23:20)
[2018-12-21 04:30] LABS: Basophils % 0.4 % (0.0-0.8); Eosinophils # 0.1 10*3/uL (0.0-0.87); Eosinophils % 0.9 % (0.00-10.9); Hematocrit 31.3 VOL% (35.7-47.0); Hemoglobin 9.7 GM/DL (12.0-16.0); Immature Granulocytes % 1.5 %; Lymphocytes # 0.6 10*3/uL (1.4-4.0); Lymphocytes % 8.6 % (21.3-54.2); Mean Corpuscular Hemoglobin 26 PG (27-34); Mean Corpuscular Volume 85.1 FL (87-102); Mean Platelet Volume 9.2 FL (9.6-12.0); Monocytes # 0.4 10*3/uL (0.11-0.8); Monocytes % 6.3 % (1.7-12.7); Neutrophils # 5.7 10*3/uL (1.4-7.4); Neutrophils % 82.3 % (38.7-73.9); Platelet Count 179 T/CUMM (130-400); Red Blood Count 3.68 MC/CUMM (3.8-5.5); Red Cell Distribution Width 15.3 % (9.3-17.3); White Blood Count 6.9 T/CUMM (4-12)
[2018-12-21 05:00] LABS: Calcium 8.6 MG/DL (8.5-10.1); Osmolality,Calculated 279.1 MOS/KG (273-304); Potassium 3.2 MMOL/L (3.5-5.1)
[2018-12-21] MEDS: ONDANSETRON 4 MG/2 ML VIAL IV PRN ×5 (05:14→23:55)
[2018-12-21 05:41] LABS: Band Neutrophils 3 % (0-10); Lymphocytes 8 % (20-55); Platelet Estimate Normal; Segmented Neutrophils 84 % (50-85); Total Cells Counted 100
[2018-12-21 05:42] LABS: Anisocytosis 1+; Macrocytosis 1+; Polychromasia 1+
[2018-12-21] MEDS ORDERED: POTASSIUM CHLORIDE 20 MEQ TABLET PO ONE ×2 (06:49→12:00)
[2018-12-21] MEDS: DILTIAZEM CD 120 MG CAPSULE PO SCH (08:41)
[2018-12-21] MEDS: PANTOPRAZOLE 40 MG TABLET PO SCH (08:42)
[2018-12-21] MEDS: DOCUSATE SODIUM 100 MG CAPSULE PO SCH (08:42)
[2018-12-21] MEDS: LEVOFLOXACIN INJ 500 MG in PREMIX 1 EACH IV SCH (08:42)
[2018-12-21] MEDS: CLORAZEPATE 3.75 MG TABLET PO PRN (08:49)
[2018-12-21] MEDS ORDERED: PANTOPRAZOLE 40 MG TABLET PO SCH (09:00)
[2018-12-21] MEDS ORDERED: LEVOFLOXACIN 500 MG TABLET PO SCH (09:00)
[2018-12-21] MEDS: SERTRALINE 25 MG TABLET PO SCH (12:24)
[2018-12-21] MEDS: MYLANTA/LIDO VISC/NYST 180 ML BOTTLE SWISH/SWAL SCH ×3 (12:24→20:23)
[2018-12-21] MEDS: METOPROLOL SUCCINATE XL 25 MG TABLET PO SCH (20:22)
[2018-12-22] MEDS: ONDANSETRON 4 MG/2 ML VIAL IV PRN (04:00)
[2018-12-22 06:06] LABS: Calcium 8.6 MG/DL (8.5-10.1); Osmolality,Calculated 274.4 MOS/KG (273-304)
[2018-12-22] MEDS ORDERED: MAGNESIUM SULF RIDER 2 GM in PREMIX 1 EACH IV ONE (07:06)
[2018-12-22] MEDS: LEVOFLOXACIN INJ 500 MG in PREMIX 1 EACH IV SCH (09:09)
[2018-12-22] MEDS: POTASSIUM CHLORIDE 20 MEQ TABLET PO SCH ×2 (09:10→12:45)
[2018-12-22] MEDS: SERTRALINE 25 MG TABLET PO SCH (09:10)
[2018-12-22] MEDS: PANTOPRAZOLE 40 MG TABLET PO SCH (09:10)
[2018-12-22] MEDS: DILTIAZEM CD 120 MG CAPSULE PO SCH (09:10)
[2018-12-22] MEDS: MYLANTA/LIDO VISC/NYST 180 ML BOTTLE SWISH/SWAL SCH ×2 (09:10→12:58)
[2018-12-22] MEDS: DOCUSATE SODIUM 100 MG CAPSULE PO SCH (09:11)
[2018-12-22 12:52] VITALS: BP 98/54
[2018-12-22] MEDS ORDERED: POTASSIUM CHLORIDE 20 MEQ/15 ML UDCUP PO SCH (13:00)
== END 2018-12-22 15:05 | disposition home or self-care (01) ==
LOC: EDUNIT# → EDBD → N.ED 14:34 → INTOOBSV 15:37 → N.EDINP 15:37 → N.4E 16:29
PROVIDERS: ADMIT Family Medicine; ATTEND Family Medicine

== ENCOUNTER 2019-02-28 17:10 | Observation (INO) ==
[2019-02-28] MEDS ORDERED: ONDANSETRON 4 MG/2 ML VIAL IV STA (19:38)
[2019-02-28] MEDS ORDERED: MECLIZINE 25 MG TABLET PO STA (19:38)
[2019-02-28] MEDS ORDERED: SODIUM CHLORIDE 0.9% 500 ML IV STA (19:38)
[2019-02-28 21:01] LABS: Eosinophils % 0.2 % (0.00-10.9); Hemoglobin 8.5 GM/DL (12.0-16.0); Immature Granulocytes % 0.5 %; Immature Granulocytes Absolute 0.03 #; Lymphocytes # 0.6 10*3/uL (1.4-4.0); Lymphocytes % 10.7 % (21.3-54.2); Mean Corpuscular HGB Conc 32.7 GM/DL (32-36); Mean Corpuscular Volume 89.7 FL (87-102); Mean Platelet Volume 8.4 FL (9.6-12.0); Monocytes % 1.6 % (1.7-12.7); Platelet Count 216 T/CUMM (130-400); Red Cell Distribution Width 17.4 % (9.3-17.3); White Blood Count 5.8 T/CUMM (4-12)
[2019-02-28 21:10] LABS: INR 0.9; PT Patient Result 9.9 SECS
[2019-02-28 21:22] LABS: Apearance,Urine CLEAR (Clear); Bacteria,Urine Occasional /HPF (Few); Bilirubin,Urine Negative (Negative); Blood, Urine Negative (Negative); Glucose,Urine (UA) Negative (Negative); Hyaline Casts,Urine 3 /LPF (0-3); Ketones,Urine Negative (Negative); Mucus,Urine Occasional /LPF (Occasional); Nitrite,Urine Negative (Negative); Protein,Urine Negative; RBC,Urine 2 /HPF (0-4); Squamous Epithelial Cell,Urine Occasional /HPF (0-10); Urine Color Yellow (Yellow); Urine Specific Gravity 1.016 (1.001-1.035); WBC,Urine 10 /HPF (0-6)
[2019-02-28 21:37] LABS: Albumin 2.9 G/DL (3.4-5.0); Bilirubin,Total 0.5 MG/DL (0.2-1.0); Calcium 8.4 MG/DL (8.5-10.1); Osmolality,Calculated 257.8 MOS/KG (273-304); Thyroid Stimulating Hormone 1.13 uIU/ml (0.358-3.74); Total Protein 5.9 G/DL (6.4-8.3)
[2019-02-28] MEDS ORDERED: cefTRIAXone 1,000 MG in SODIUM CHLORIDE 0.9% 100 ML IV STA (22:45)
[2019-03-01] MEDS ORDERED: ACETAMINOPHEN 325 MG TABLET PO PRN (01:51)
[2019-03-01] MEDS ORDERED: MAGNESIUM SULF RIDER 2 GM in PREMIX 1 EACH IV PRN (01:51)
[2019-03-01] MEDS ORDERED: PROMETHAZINE 25 MG/1 ML VIAL IM PRN (01:51)
[2019-03-01] MEDS ORDERED: MAGNESIUM SULF RIDER 4 GM in PREMIX 1 EACH IV PRN (01:51)
[2019-03-01] MEDS ORDERED: ONDANSETRON 4 MG/2 ML VIAL IV PRN (01:51)
[2019-03-01 07:28] LABS: Basophils % 0.2 % (0.0-0.8); Eosinophils % 0.3 % (0.00-10.9); Hemoglobin 8.1 GM/DL (12.0-16.0); Immature Granulocytes % 0.5 %; Immature Granulocytes Absolute 0.03 #; Lymphocytes # 0.6 10*3/uL (1.4-4.0); Lymphocytes % 10.1 % (21.3-54.2); Mean Corpuscular HGB Conc 32.4 GM/DL (32-36); Mean Platelet Volume 8.8 FL (9.6-12.0); Monocytes % 0.9 % (1.7-12.7); Platelet Count 196 T/CUMM (130-400); Red Blood Count 2.81 MC/CUMM (3.8-5.5); Red Cell Distribution Width 17.1 % (9.3-17.3); White Blood Count 5.8 T/CUMM (4-12)
[2019-03-01 07:48] LABS: Calcium 8.2 MG/DL (8.5-10.1); Osmolality,Calculated 257.8 MOS/KG (273-304)
[2019-03-01 07:52] LABS: Lymphocytes 8 % (20-55); Platelet Estimate Adequate; Segmented Neutrophils 92 % (50-85); Total Cells Counted 100
[2019-03-01 07:53] LABS: Hypochromasia 1+; Ovalocytes Slight
[2019-03-01] MEDS ORDERED: POTASSIUM CHLORIDE 20 MEQ TABLET PO ONE (08:14)
[2019-03-01] MEDS ORDERED: PROMETHAZINE 25 MG TABLET PO PRN (10:02)
[2019-03-01] MEDS ORDERED: CETIRIZINE PO PRN (10:02)
[2019-03-01] MEDS ORDERED: ONDANSETRON ODT 4 MG TABLET PO PRN (10:02)
[2019-03-01] MEDS ORDERED: MAGNESIUM HYDROXIDE SUSP 30 ML UDCUP PO PRN (10:02)
[2019-03-01] MEDS ORDERED: FLUTICASONE 50 MCG NASAL SPRAY 16 GM BOTTLE BOTH NARES PRN (10:02)
[2019-03-01] MEDS ORDERED: DOCUSATE SODIUM 100 MG CAPSULE PO PRN (10:02)
[2019-03-01] MEDS ORDERED: PSEUDOEPHEDRINE PO PRN (10:02)
[2019-03-01] MEDS ORDERED: MELATONIN 3 MG TABLET PO PRN (10:02)
[2019-03-01] MEDS ORDERED: CLORAZEPATE 3.75 MG TABLET PO PRN (10:02)
[2019-03-01] MEDS ORDERED: ALBUTEROL/IPRATROPIUM 3 ML NEB RESP TX PRN (10:02)
[2019-03-01] MEDS: SODIUM CHLOR 0.9% KCL 20 MEQ 20 MEQ/1,000 ML BAG IV SCH (10:31)
[2019-03-01] MEDS: METOPROLOL SUCCINATE XL 50 MG TABLET PO SCH (21:25)
[2019-03-01] MEDS: ESCITALOPRAM 10 MG TABLET PO SCH (21:25)
[2019-03-01] MEDS: POLYETHYLENE GLYCOL POWDER 17 GM PACK PO SCH (21:25)
[2019-03-02] MEDS ORDERED: cefTRIAXone 1,000 MG in SYRINGE 1 EACH IV SCH (00:30)
[2019-03-02] MEDS: SODIUM CHLOR 0.9% KCL 20 MEQ 20 MEQ/1,000 ML BAG IV SCH ×2 (00:31→13:35)
[2019-03-02 04:36] LABS: Basophils % 0.4 % (0.0-0.8); Eosinophils # 0.1 10*3/uL (0.0-0.87); Eosinophils % 1.3 % (0.00-10.9); Hematocrit 24.7 VOL% (35.7-47.0); Immature Granulocytes % 0.7 %; Immature Granulocytes Absolute 0.03 #; Lymphocytes # 0.6 10*3/uL (1.4-4.0); Lymphocytes % 12.2 % (21.3-54.2); Mean Corpuscular HGB Conc 32.4 GM/DL (32-36); Mean Corpuscular Volume 89.8 FL (87-102); Mean Platelet Volume 8.6 FL (9.6-12.0); Monocytes % 0.9 % (1.7-12.7); Neutrophils % 84.5 % (38.7-73.9); Platelet Count 172 T/CUMM (130-400); Red Blood Count 2.75 MC/CUMM (3.8-5.5); Red Cell Distribution Width 16.4 % (9.3-17.3); White Blood Count 4.5 T/CUMM (4-12)
[2019-03-02 04:55] LABS: Calcium 8.1 MG/DL (8.5-10.1); Osmolality,Calculated 259.7 MOS/KG (273-304)
[2019-03-02 05:03] LABS: Anisocytosis Slight; Eosinophils 2 % (0-10); Lymphocytes 12 % (20-55); Microcytosis 1+; Ovalocytes Slight; Segmented Neutrophils 86 % (50-85); Stomatocytes Slight; Total Cells Counted 100
[2019-03-02 05:04] LABS: Platelet Estimate Normal
[2019-03-02] MEDS: POLYETHYLENE GLYCOL POWDER 17 GM PACK PO SCH ×2 (08:57→12:27)
[2019-03-02] MEDS: ESCITALOPRAM 10 MG TABLET PO SCH (08:57)
[2019-03-02] MEDS: METOPROLOL SUCCINATE XL 50 MG TABLET PO SCH (08:57)
[2019-03-02] MEDS ORDERED: PANTOPRAZOLE 40 MG TABLET PO SCH (09:00)
[2019-03-02] MEDS ORDERED: DILTIAZEM CD 120 MG CAPSULE PO SCH (09:00)
[2019-03-02 12:09] VITALS: BP 107/69
[2019-03-02] MEDS ORDERED: HEPARIN LOCK FLUSH 500 UNIT/5 ML SYRINGE IV ONE (14:41)
== END 2019-03-02 15:03 | disposition home or self-care (01) ==
LOC: N.EDINP 17:10 → N.ED 17:10 → SUATTDRO 03-01 00:07 → N.4E 03-01 00:38
PROVIDERS: ADMIT Internal Medicine; ATTEND Internal Medicine

== ENCOUNTER 2019-04-22 13:48 | Inpatient (IN) ==
[2019-04-22 14:48] LABS: Basophils % 0.3 % (0.0-0.8); Eosinophils % 0.3 % (0.00-10.9); Hematocrit 28.1 VOL% (35.7-47.0); Hemoglobin 9.6 GM/DL (12.0-16.0); Immature Granulocytes % 1.1 %; Lymphocytes # 0.5 10*3/uL (1.4-4.0); Lymphocytes % 5.2 % (21.3-54.2); Mean Corpuscular HGB Conc 34.2 GM/DL (32-36); Mean Corpuscular Volume 91.8 FL (87-102); Mean Platelet Volume 8.9 FL (9.6-12.0); Monocytes % 9.2 % (1.7-12.7); Neutrophils % 83.9 % (38.7-73.9); Platelet Count 167 T/CUMM (130-400); Red Blood Count 3.06 MC/CUMM (3.8-5.5); Red Cell Distribution Width 16.6 % (9.3-17.3); White Blood Count 9.2 T/CUMM (4-12)
[2019-04-22 14:55] LABS: INR 0.9; Partial Thromboplastin Time < 21.0 SECS (0-40)
[2019-04-22 15:02] LABS: Amorphous Crystals,Urine Few /HPF (Few); Apearance,Urine CLOUDY (Clear); Bilirubin,Urine Negative (Negative); Blood, Urine Negative (Negative); Glucose,Urine (UA) Negative (Negative); Ketones,Urine Negative (Negative); Nitrite,Urine Negative (Negative); Protein,Urine Negative; Urine Color Yellow (Yellow); Urine Specific Gravity 1.012 (1.001-1.035); Urine Urobilinogen < 2.0 EU/DL (0.2-1.0)
[2019-04-22 15:08] LABS: Anisocytosis Slight; Hypochromasia 1+; Lymphocytes 8 % (20-55); Microcytosis Slight; Ovalocytes Slight; Platelet Estimate Normal; Segmented Neutrophils 83 % (50-85); Total Cells Counted 100
[2019-04-22 15:15] LABS: Albumin 3.2 G/DL (3.4-5.0); Bilirubin,Total 0.4 MG/DL (0.2-1.0); Calcium 9.6 MG/DL (8.5-10.1); Osmolality,Calculated 239.2 MOS/KG (273-304); Total Protein 6.6 G/DL (6.4-8.3)
[2019-04-22 15:20] LABS: Barbiturates Screen,Urine Negative (Negative); Benzodiazepines Screen,Urine Negative (Negative); Cannabinoid Screen,Urine Negative (Negative); Opiate Screen,Urine Negative (Negative); Phencyclidine Screen,Urine Negative (Negative)
[2019-04-22] MEDS ORDERED: ACETAMINOPHEN 325 MG TABLET PO PRN (16:16)
[2019-04-22] MEDS ORDERED: ONDANSETRON 4 MG/2 ML VIAL IV PRN (16:16)
[2019-04-22] MEDS ORDERED: LACTULOSE 20 GM/30 ML UDCUP PO PRN (16:16)
[2019-04-22] MEDS ORDERED: OLANZapine 5 MG TABLET PO PRN (16:39)
[2019-04-22] MEDS ORDERED: traZODone 50 MG TABLET PO PRN (16:39)
[2019-04-22] MEDS ORDERED: MELATONIN 3 MG TABLET PO PRN (16:39)
[2019-04-22] MEDS ORDERED: ALUMINUM/MAGNES/SIMETH MAX STR 30 ML UDCUP PO PRN (16:39)
[2019-04-22 16:58] LABS: Thyroid Stimulating Hormone 0.872 uIU/ml (0.358-3.74)
[2019-04-22] MEDS: ENOXAPARIN 40 MG/0.4 ML SYRINGE SUBCUT SCH (17:46)
[2019-04-22] MEDS: SODIUM CHLORIDE 0.9% 1,000 ML IV SCH (17:46)
[2019-04-22] MEDS: DILTIAZEM CD 120 MG CAPSULE PO SCH (21:00)
[2019-04-22] MEDS: METOPROLOL TARTRATE 25 MG TABLET PO SCH (21:00)
[2019-04-22] MEDS: ARIPiprazole 5 MG TABLET PO SCH (22:09)
[2019-04-23 04:19] LABS: Basophils % 0.4 % (0.0-0.8); Eosinophils % 0.3 % (0.00-10.9); Hematocrit 24.9 VOL% (35.7-47.0); Hemoglobin 8.5 GM/DL (12.0-16.0); Immature Granulocytes % 0.7 %; Immature Granulocytes Absolute 0.05 #; Lymphocytes # 0.5 10*3/uL (1.4-4.0); Lymphocytes % 7.2 % (21.3-54.2); Mean Corpuscular HGB Conc 34.1 GM/DL (32-36); Mean Corpuscular Volume 89.9 FL (87-102); Mean Platelet Volume 8.8 FL (9.6-12.0); Monocytes % 11.7 % (1.7-12.7); Neutrophils % 79.7 % (38.7-73.9); Platelet Count 143 T/CUMM (130-400); Red Blood Count 2.77 MC/CUMM (3.8-5.5); Red Cell Distribution Width 16.4 % (9.3-17.3); White Blood Count 7.1 T/CUMM (4-12)
[2019-04-23 04:37] LABS: Calcium 8.9 MG/DL (8.5-10.1); Osmolality,Calculated 245.6 MOS/KG (273-304); Risk Ratio 3.51; VLDL CHOLESTEROL 25.4 MG/DL
[2019-04-23] MEDS: SODIUM CHLORIDE 0.9% 1,000 ML IV SCH ×4 (05:38→19:51)
[2019-04-23] MEDS: PANTOPRAZOLE 40 MG TABLET PO SCH (08:27)
[2019-04-23] MEDS: METOPROLOL TARTRATE 25 MG TABLET PO SCH ×2 (08:27→21:11)
[2019-04-23] MEDS: DILTIAZEM CD 120 MG CAPSULE PO SCH ×2 (08:27→21:11)
[2019-04-23] MEDS: ENOXAPARIN 40 MG/0.4 ML SYRINGE SUBCUT SCH (16:46)
[2019-04-23 20:51] LABS: Calcium 8.5 MG/DL (8.5-10.1); Osmolality,Calculated 248.5 MOS/KG (273-304)
[2019-04-23] MEDS ORDERED: MAGNESIUM SULF RIDER 2 GM in PREMIX 1 EACH IV PRN (20:59)
[2019-04-23] MEDS ORDERED: MAGNESIUM SULF RIDER 4 GM in PREMIX 1 EACH IV PRN (20:59)
[2019-04-23] MEDS: ARIPiprazole 5 MG TABLET PO SCH (21:10)
[2019-04-23] MEDS: POTASSIUM CHLORIDE 20 MEQ TABLET PO PRN (21:11)
[2019-04-24] MEDS: POTASSIUM CHLORIDE 20 MEQ TABLET PO PRN ×3 (02:36→06:25)
[2019-04-24 03:43] LABS: Basophils % 0.3 % (0.0-0.8); Eosinophils % 0.5 % (0.00-10.9); Hematocrit 22.7 VOL% (35.7-47.0); Hemoglobin 7.7 GM/DL (12.0-16.0); Immature Granulocytes % 1.1 %; Immature Granulocytes Absolute 0.07 #; Lymphocytes # 0.3 10*3/uL (1.4-4.0); Lymphocytes % 4.7 % (21.3-54.2); Mean Corpuscular HGB Conc 33.9 GM/DL (32-36); Mean Corpuscular Volume 91.5 FL (87-102); Mean Platelet Volume 8.7 FL (9.6-12.0); Neutrophils % 84.4 % (38.7-73.9); Platelet Count 121 T/CUMM (130-400); Red Blood Count 2.48 MC/CUMM (3.8-5.5); Red Cell Distribution Width 16.4 % (9.3-17.3); White Blood Count 6.4 T/CUMM (4-12)
[2019-04-24 04:00] LABS: Calcium 8.5 MG/DL (8.5-10.1); Osmolality,Calculated 249.4 MOS/KG (273-304)
[2019-04-24 04:20] LABS: Eosinophils 1 % (0-10); Lymphocytes 3 % (20-55); Pappenheimer Bodies Few; Platelet Estimate Adequate; Segmented Neutrophils 91 % (50-85); Total Cells Counted 100
[2019-04-24] MEDS: SODIUM CHLORIDE 0.9% 1,000 ML IV SCH ×3 (04:34→16:04)
[2019-04-24] MEDS ORDERED: SODIUM CHLORIDE 0.9% 1,000 ML IV PRN (06:52)
[2019-04-24 07:10] LABS: Hemoglobin 8.1 GM/DL (12.0-16.0)
[2019-04-24] MEDS: METOPROLOL TARTRATE 25 MG TABLET PO SCH ×2 (08:59→20:19)
[2019-04-24] MEDS: PANTOPRAZOLE 40 MG TABLET PO SCH (08:59)
[2019-04-24] MEDS: DILTIAZEM CD 120 MG CAPSULE PO SCH ×2 (08:59→20:19)
[2019-04-24] MEDS: ENOXAPARIN 40 MG/0.4 ML SYRINGE SUBCUT SCH (16:39)
[2019-04-24] MEDS: ARIPiprazole 5 MG TABLET PO SCH (20:19)
[2019-04-25 04:49] LABS: Basophils % 0.4 % (0.0-0.8); Eosinophils % 0.8 % (0.00-10.9); Hematocrit 21.7 VOL% (35.7-47.0); Hemoglobin 7.2 GM/DL (12.0-16.0); Immature Granulocytes % 0.8 %; Immature Granulocytes Absolute 0.04 #; Lymphocytes # 0.4 10*3/uL (1.4-4.0); Mean Corpuscular HGB Conc 33.2 GM/DL (32-36); Mean Corpuscular Volume 92.7 FL (87-102); Mean Platelet Volume 9.5 FL (9.6-12.0); Monocytes % 10.9 % (1.7-12.7); Neutrophils % 79.1 % (38.7-73.9); Platelet Count 141 T/CUMM (130-400); Red Blood Count 2.34 MC/CUMM (3.8-5.5); Red Cell Distribution Width 16.6 % (9.3-17.3)
[2019-04-25] MEDS: SODIUM CHLORIDE 0.9% 1,000 ML IV SCH (05:07)
[2019-04-25 07:50] LABS: Hematocrit 24.2 VOL% (35.7-47.0); Hemoglobin 8.1 GM/DL (12.0-16.0)
[2019-04-25 08:03] LABS: Calcium 8.6 MG/DL (8.5-10.1); Osmolality,Calculated 252.1 MOS/KG (273-304)
[2019-04-25 09:30] VITALS: BP 123/74
[2019-04-25] MEDS: METOPROLOL TARTRATE 25 MG TABLET PO SCH (09:34)
[2019-04-25] MEDS: PANTOPRAZOLE 40 MG TABLET PO SCH (09:35)
[2019-04-25] MEDS: DILTIAZEM CD 120 MG CAPSULE PO SCH (09:35)
[2019-04-25] MEDS ORDERED: HEPARIN LOCK FLUSH 500 UNIT/5 ML SYRINGE IV ONE (11:14)
== END 2019-04-25 11:35 | disposition home or self-care (01) | DRG 426 ==
LOC: EDBD → EDUNIT# → N.ED 13:48 → SUATTDRO 15:22 → N.EDINP 15:22 → N.CC 21:10 → N.4E 04-24 07:44
PROVIDERS: ADMIT Hospitalist; ATTEND Internal Medicine

== ENCOUNTER 2019-04-29 11:17 | Inpatient (IN) ==
[2019-04-29] MEDS ORDERED: PANTOPRAZOLE 40 MG VIAL IV STA (15:37)
[2019-04-29] MEDS ORDERED: LORazepam 1 MG TABLET PO STA (15:45)
[2019-04-29 16:57] LABS: Apearance,Urine CLOUDY (Clear); Barbiturates Screen,Urine Negative (Negative); Benzodiazepines Screen,Urine Positive (Negative); Bilirubin,Urine Negative (Negative); Blood, Urine Negative (Negative); Calcium Oxalate Crystals,Urine Moderate /HPF (Few); Cannabinoid Screen,Urine Negative (Negative); Glucose,Urine (UA) Negative (Negative); Hyaline Casts,Urine 9 /LPF (0-3); Ketones,Urine 5 mg/dL (Negative); Mucus,Urine Many /LPF (Occasional); Nitrite,Urine Negative (Negative); Opiate Screen,Urine Positive (Negative); Phencyclidine Screen,Urine Negative (Negative); Protein,Urine 30 MG/DL; RBC,Urine 4 /HPF (0-4); Squamous Epithelial Cell,Urine Occasional /HPF (0-10); Urine Color Amber (Yellow); Urine Specific Gravity 1.024 (1.001-1.035); WBC,Urine 619 /HPF (0-6)
[2019-04-29] MEDS ORDERED: PANTOPRAZOLE 40 MG VIAL IV ONE (17:07)
[2019-04-29] MEDS ORDERED: LORazepam 1 MG TABLET ONE (17:07)
[2019-04-29 17:24] LABS: Basophils % 0.7 % (0.0-0.8); Eosinophils # 0.1 10*3/uL (0.0-0.87); Eosinophils % 2.1 % (0.00-10.9); Hematocrit 25.1 VOL% (35.7-47.0); Immature Granulocytes Absolute 0.04 #; Lymphocytes # 0.4 10*3/uL (1.4-4.0); Lymphocytes % 9.8 % (21.3-54.2); Mean Corpuscular HGB Conc 31.9 GM/DL (32-36); Mean Corpuscular Volume 95.8 FL (87-102); Mean Platelet Volume 8.9 FL (9.6-12.0); Monocytes % 8.8 % (1.7-12.7); Neutrophils % 77.6 % (38.7-73.9); Platelet Count 157 T/CUMM (130-400); Red Blood Count 2.62 MC/CUMM (3.8-5.5); Red Cell Distribution Width 16.6 % (9.3-17.3); White Blood Count 4.2 T/CUMM (4-12)
[2019-04-29] MEDS ORDERED: AMPICILLIN/SULBACTAM 3,000 MG in SODIUM CHLORIDE 0.9% 100 ML IV STA (17:27)
[2019-04-29 17:40] LABS: PT Patient Result 10.5 SECS; Partial Thromboplastin Time 21.2 SECS (0-40)
[2019-04-29 17:47] LABS: Alanine Aminotransferase 18 U/L (13-56); Albumin 3.1 G/DL (3.4-5.0); Alkaline Phosphatase 78 U/L (45-117); Aspartate Amino Transferase 31 U/L (0-37); Bilirubin,Total < 0.39 MG/DL (0.2-1.0); Blood Urea Nitrogen 13 MG/DL (7-18); Calcium 9.5 MG/DL (8.5-10.1); Glucose 96 MG/DL (74-106); Osmolality,Calculated 269.1 MOS/KG (273-304); Total Protein 6.2 G/DL (6.4-8.3); Troponin I 0.035 NG/ML (0.00-0.045)
[2019-04-29] MEDS ORDERED: ENOXAPARIN 40 MG/0.4 ML SYRINGE SUBCUT SCH (19:00)
[2019-04-29] MEDS ORDERED: LORazepam 1 MG TABLET PO PRN (19:13)
[2019-04-29 21:57] LABS: Hematocrit 22.2 VOL% (35.7-47.0); Hemoglobin 7.1 GM/DL (12.0-16.0)
[2019-04-29] MEDS: DEXT 5% NACL 0.9% KCL 20 MEQ 20 MEQ/1,000 ML BAG IV SCH (22:34)
[2019-04-29] MEDS: PANTOPRAZOLE INJ 200 MG in SODIUM CHLORIDE 0.9% 250 ML IV SCH (22:41)
[2019-04-29] MEDS: cefTRIAXone 1,000 MG in SYRINGE 1 EACH IV SCH (23:19)
[2019-04-30 05:45] LABS: Basophils % 0.5 % (0.0-0.8); Eosinophils # 0.1 10*3/uL (0.0-0.87); Eosinophils % 1.8 % (0.00-10.9); Hematocrit 22.3 VOL% (35.7-47.0); Hemoglobin 7.2 GM/DL (12.0-16.0); Immature Granulocytes % 0.8 %; Immature Granulocytes Absolute 0.03 #; Lymphocytes # 0.4 10*3/uL (1.4-4.0); Lymphocytes % 9.2 % (21.3-54.2); Mean Corpuscular HGB Conc 32.3 GM/DL (32-36); Mean Corpuscular Volume 95.3 FL (87-102); Monocytes % 7.9 % (1.7-12.7); Neutrophils % 79.8 % (38.7-73.9); Platelet Count 131 T/CUMM (130-400); Red Blood Count 2.34 MC/CUMM (3.8-5.5); Red Cell Distribution Width 16.6 % (9.3-17.3); White Blood Count 3.8 T/CUMM (4-12)
[2019-04-30 06:14] LABS: Osmolality,Calculated 276.5 MOS/KG (273-304)
[2019-04-30 07:12] LABS: Hematocrit 23.8 VOL% (35.7-47.0); Hemoglobin 7.6 GM/DL (12.0-16.0)
[2019-04-30] MEDS ORDERED: MAGNESIUM SULF RIDER 2 GM in PREMIX 1 EACH IV ONE ×2 (07:12→17:30)
[2019-04-30] MEDS ORDERED: SODIUM CHLORIDE 0.9% 1,000 ML IV PRN (07:13)
[2019-04-30] MEDS ORDERED: POTASSIUM CHLORIDE 20 MEQ TABLET PO ONE (07:15)
[2019-04-30] MEDS: DEXT 5% NACL 0.9% KCL 20 MEQ 20 MEQ/1,000 ML BAG IV SCH (08:37)
[2019-04-30] MEDS ORDERED: POLYETHYLENE GLYCOL POWDER 255 GM BOTTLE PO ONE (15:00)
[2019-04-30] MEDS: BISACODYL 5 MG TABLET PO SCH ×2 (15:11→22:46)
[2019-04-30] MEDS ORDERED: ACETAMINOPHEN 325 MG TABLET PO PRN (15:35)
[2019-04-30] MEDS ORDERED: PROMETHAZINE 25 MG TABLET PO PRN (15:35)
[2019-04-30] MEDS ORDERED: LOPERAMIDE 2 MG CAPSULE PO PRN (15:35)
[2019-04-30] MEDS ORDERED: DILTIAZEM CD 120 MG CAPSULE PO SCH (16:00)
[2019-04-30 17:45] LABS: Hematocrit 31.8 VOL% (35.7-47.0)
[2019-04-30 17:46] LABS: Hemoglobin 10.2 GM/DL (12.0-16.0)
[2019-04-30] MEDS: cefTRIAXone 1,000 MG in SYRINGE 1 EACH IV SCH (20:02)
[2019-04-30] MEDS ORDERED: MAGNESIUM CITRATE 300 ML BOTTLE PO ONE (21:00)
[2019-04-30] MEDS: METOPROLOL TARTRATE 50 MG TABLET PO SCH (21:08)
[2019-04-30] MEDS: DILTIAZEM CD 120 MG CAPSULE PO SCH (21:08)
[2019-04-30] MEDS: PANTOPRAZOLE INJ 200 MG in SODIUM CHLORIDE 0.9% 250 ML IV SCH (21:23)
[2019-05-01] MEDS: DEXT 5% NACL 0.9% KCL 20 MEQ 20 MEQ/1,000 ML BAG IV SCH ×4 (03:40→15:35)
[2019-05-01] MEDS ORDERED: LORazepam 2 MG/1 ML VIAL IV ONE (04:41)
[2019-05-01 05:20] LABS: Basophils % 0.5 % (0.0-0.8); Eosinophils # 0.1 10*3/uL (0.0-0.87); Eosinophils % 2.7 % (0.00-10.9); Hematocrit 31.2 VOL% (35.7-47.0); Hemoglobin 10.1 GM/DL (12.0-16.0); Immature Granulocytes % 0.9 %; Immature Granulocytes Absolute 0.04 #; Lymphocytes # 0.4 10*3/uL (1.4-4.0); Lymphocytes % 9.3 % (21.3-54.2); Mean Corpuscular HGB Conc 32.4 GM/DL (32-36); Mean Corpuscular Volume 92.3 FL (87-102); Mean Platelet Volume 8.9 FL (9.6-12.0); Monocytes % 8.4 % (1.7-12.7); Neutrophils % 78.2 % (38.7-73.9); Platelet Count 121 T/CUMM (130-400); Red Blood Count 3.38 MC/CUMM (3.8-5.5); Red Cell Distribution Width 16.6 % (9.3-17.3); White Blood Count 4.4 T/CUMM (4-12)
[2019-05-01 05:37] LABS: Calcium 9.1 MG/DL (8.5-10.1); Osmolality,Calculated 273.5 MOS/KG (273-304)
[2019-05-01] MEDS ORDERED: PROPOFOL 200 MG/20 ML VIAL IV ONE (10:00)
[2019-05-01] MEDS ORDERED: LIDOCAINE 100 MG/5 ML SYRINGE ONE (10:00)
[2019-05-01] MEDS: BISACODYL 5 MG TABLET PO SCH (12:21)
[2019-05-01] MEDS ORDERED: OLANZapine 5 MG TABLET PO PRN (15:22)
[2019-05-01] MEDS: DILTIAZEM CD 120 MG CAPSULE PO SCH ×2 (15:29→21:15)
[2019-05-01] MEDS: PANTOPRAZOLE 40 MG TABLET PO SCH (15:30)
[2019-05-01] MEDS: METOPROLOL TARTRATE 50 MG TABLET PO SCH ×2 (15:30→21:16)
[2019-05-01] MEDS: POLYETHYLENE GLYCOL POWDER 17 GM PACK PO SCH ×3 (15:31→22:45)
[2019-05-01] MEDS: cefTRIAXone 1,000 MG in SYRINGE 1 EACH IV SCH (21:14)
[2019-05-01] MEDS: ARIPiprazole 5 MG TABLET PO SCH (21:15)
[2019-05-01] MEDS: ESCITALOPRAM 10 MG TABLET PO SCH (21:15)
[2019-05-02] MEDS: DEXT 5% NACL 0.9% KCL 20 MEQ 20 MEQ/1,000 ML BAG IV SCH ×2 (01:31→09:53)
[2019-05-02 04:49] LABS: Basophils % 0.6 % (0.0-0.8); Eosinophils # 0.2 10*3/uL (0.0-0.87); Eosinophils % 3.1 % (0.00-10.9); Hematocrit 33.3 VOL% (35.7-47.0); Hemoglobin 10.6 GM/DL (12.0-16.0); Immature Granulocytes % 0.8 %; Immature Granulocytes Absolute 0.04 #; Lymphocytes # 0.5 10*3/uL (1.4-4.0); Lymphocytes % 9.7 % (21.3-54.2); Mean Corpuscular HGB Conc 31.8 GM/DL (32-36); Mean Corpuscular Volume 92.8 FL (87-102); Mean Platelet Volume 8.8 FL (9.6-12.0); Monocytes % 7.2 % (1.7-12.7); Neutrophils % 78.6 % (38.7-73.9); Platelet Count 109 T/CUMM (130-400); Red Blood Count 3.59 MC/CUMM (3.8-5.5); Red Cell Distribution Width 16.4 % (9.3-17.3); White Blood Count 5.1 T/CUMM (4-12)
[2019-05-02 05:12] LABS: Calcium 9.3 MG/DL (8.5-10.1); Osmolality,Calculated 265.1 MOS/KG (273-304)
[2019-05-02] MEDS ORDERED: MAGNESIUM SULF RIDER 2 GM in PREMIX 1 EACH IV ONE (07:24)
[2019-05-02] MEDS ORDERED: PANTOPRAZOLE 40 MG TABLET PO SCH (09:00)
[2019-05-02] MEDS: METOPROLOL TARTRATE 50 MG TABLET PO SCH ×2 (09:33→21:20)
[2019-05-02] MEDS: ESCITALOPRAM 10 MG TABLET PO SCH ×2 (09:33→21:20)
[2019-05-02] MEDS: POLYETHYLENE GLYCOL POWDER 17 GM PACK PO SCH ×3 (09:34→21:20)
[2019-05-02] MEDS: PANTOPRAZOLE 40 MG TABLET PO SCH (09:34)
[2019-05-02] MEDS: DILTIAZEM CD 120 MG CAPSULE PO SCH ×2 (09:35→21:20)
[2019-05-02] MEDS ORDERED: cefOXitin 2,000 MG in SYRINGE 1 EACH IV ONE (12:00)
[2019-05-02] MEDS: cefTRIAXone 1,000 MG in SYRINGE 1 EACH IV SCH (21:15)
[2019-05-02] MEDS: ARIPiprazole 5 MG TABLET PO SCH (21:19)
[2019-05-03 05:36] LABS: Basophils % 0.4 % (0.0-0.8); Eosinophils # 0.1 10*3/uL (0.0-0.87); Eosinophils % 3.1 % (0.00-10.9); Hematocrit 32.6 VOL% (35.7-47.0); Hemoglobin 10.7 GM/DL (12.0-16.0); Immature Granulocytes % 0.9 %; Immature Granulocytes Absolute 0.04 #; Lymphocytes # 0.5 10*3/uL (1.4-4.0); Lymphocytes % 11.3 % (21.3-54.2); Mean Corpuscular HGB Conc 32.8 GM/DL (32-36); Mean Corpuscular Volume 91.6 FL (87-102); Mean Platelet Volume 9.3 FL (9.6-12.0); Monocytes % 7.8 % (1.7-12.7); Neutrophils % 76.5 % (38.7-73.9); Platelet Count 107 T/CUMM (130-400); Red Blood Count 3.56 MC/CUMM (3.8-5.5); Red Cell Distribution Width 15.6 % (9.3-17.3); White Blood Count 4.5 T/CUMM (4-12)
[2019-05-03 05:44] LABS: Osmolality,Calculated 255.8 MOS/KG (273-304)
[2019-05-03 06:45] LABS: Anisocytosis 1+; Platelet Estimate Adequate
[2019-05-03 06:46] LABS: Poikilocytosis Slight
[2019-05-03] MEDS ORDERED: MAGNESIUM SULF RIDER 2 GM in PREMIX 1 EACH IV ONE (07:11)
[2019-05-03] MEDS: POTASSIUM CHLORIDE INJ 40 MEQ in LACTATED RINGERS 1,000 ML IV SCH ×2 (08:30→22:01)
[2019-05-03] MEDS: DILTIAZEM CD 120 MG CAPSULE PO SCH ×2 (09:19→21:57)
[2019-05-03] MEDS: METOPROLOL TARTRATE 50 MG TABLET PO SCH ×2 (09:21→21:57)
[2019-05-03] MEDS: PANTOPRAZOLE 40 MG TABLET PO SCH (09:21)
[2019-05-03] MEDS: ESCITALOPRAM 10 MG TABLET PO SCH ×2 (09:22→21:57)
[2019-05-03] MEDS ORDERED: cefOXitin 2,000 MG in SYRINGE 1 EACH IV ONE (10:00)
[2019-05-03] MEDS: POLYETHYLENE GLYCOL POWDER 17 GM PACK PO SCH ×2 (10:34→21:08)
[2019-05-03] MEDS ORDERED: LACTATED RINGERS 1,000 ML IV SCH (12:00)
[2019-05-03 14:10] LABS: Amorphous Crystals,Urine Occasional /HPF (Few); Apearance,Urine Slightly Hazy (Clear); Bilirubin,Urine Negative (Negative); Blood, Urine Negative (Negative); Glucose,Urine (UA) Negative (Negative); Hyaline Casts,Urine 1 /LPF (0-3); Ketones,Urine 5 mg/dL (Negative); Mucus,Urine Occasional /LPF (Occasional); Nitrite,Urine Negative (Negative); Protein,Urine Negative; RBC,Urine 1 /HPF (0-4); Squamous Epithelial Cell,Urine Occasional /HPF (0-10); Urine Color Yellow (Yellow); Urine Urobilinogen < 2.0 EU/DL (0.2-1.0); WBC,Urine 2 /HPF (0-6)
[2019-05-03] MEDS ORDERED: PROPOFOL 200 MG/20 ML VIAL IV ONE (14:10)
[2019-05-03] MEDS ORDERED: MIDAZOLAM 2 MG/2 ML VIAL ONE (14:11)
[2019-05-03] MEDS ORDERED: SEVOFLURANE 1 UNIT/15 MINUTE INH ONE (14:11)
[2019-05-03] MEDS ORDERED: PHENYLEPHRINE 1 MG/10 ML SYRINGE IV ONE (14:12)
[2019-05-03] MEDS ORDERED: NEOSTIGMINE 10 MG/10 ML VIAL ONE (14:12)
[2019-05-03] MEDS ORDERED: SODIUM CHLORIDE 0.9% 1,000 ML IV ONE (14:12)
[2019-05-03] MEDS ORDERED: GLYCOPYRROLATE 0.4 MG/2 ML VIAL ONE (14:12)
[2019-05-03] MEDS ORDERED: ROCURONIUM 100 MG/10 ML VIAL IV ONE (14:12)
[2019-05-03] MEDS ORDERED: DEXAMETHASONE 4 MG/1 ML VIAL ONE (14:12)
[2019-05-03] MEDS ORDERED: fentaNYL 100 MCG/2 ML VIAL ONE (14:12)
[2019-05-03] MEDS ORDERED: ONDANSETRON 4 MG/2 ML VIAL ONE (14:12)
[2019-05-03] MEDS ORDERED: KETOROLAC 30 MG/1 ML VIAL IV ONE (15:33)
[2019-05-03] MEDS ORDERED: MORPHINE 4 MG/1 ML VIAL IV PRN (15:35)
[2019-05-03] MEDS: cefTRIAXone 1,000 MG in SYRINGE 1 EACH IV SCH (21:55)
[2019-05-03] MEDS: KETOROLAC 15 MG/1 ML VIAL IV SCH (21:56)
[2019-05-03] MEDS: ARIPiprazole 5 MG TABLET PO SCH (21:56)
[2019-05-03] MEDS: ONDANSETRON ODT 4 MG TABLET PO PRN (21:58)
[2019-05-03] MEDS: MELATONIN 3 MG TABLET PO PRN (23:34)
[2019-05-03] MEDS: CLORAZEPATE 3.75 MG TABLET PO PRN (23:34)
[2019-05-04] MEDS: KETOROLAC 15 MG/1 ML VIAL IV SCH ×4 (04:18→22:20)
[2019-05-04 06:02] LABS: Basophils % 0.1 % (0.0-0.8); Hemoglobin 10.9 GM/DL (12.0-16.0); Immature Granulocytes % 0.5 %; Immature Granulocytes Absolute 0.06 #; Lymphocytes # 0.3 10*3/uL (1.4-4.0); Lymphocytes % 2.2 % (21.3-54.2); Mean Corpuscular HGB Conc 32.1 GM/DL (32-36); Mean Corpuscular Volume 91.9 FL (87-102); Mean Platelet Volume 9.9 FL (9.6-12.0); Monocytes % 2.9 % (1.7-12.7); Neutrophils % 94.3 % (38.7-73.9); Platelet Count 102 T/CUMM (130-400); Red Cell Distribution Width 15.4 % (9.3-17.3); White Blood Count 11.7 T/CUMM (4-12)
[2019-05-04 06:25] LABS: Platelet Estimate Decreased; Polychromasia Few; Segmented Neutrophils 97 % (50-85); Total Cells Counted 100
[2019-05-04 06:27] LABS: Albumin 2.6 G/DL (3.4-5.0); Bilirubin,Total 0.5 MG/DL (0.2-1.0); Calcium 9.4 MG/DL (8.5-10.1); Osmolality,Calculated 262.7 MOS/KG (273-304); Total Protein 5.4 G/DL (6.4-8.3)
[2019-05-04] MEDS ORDERED: MAGNESIUM SULF RIDER 2 GM in PREMIX 1 EACH IV ONE (07:34)
[2019-05-04] MEDS: ONDANSETRON ODT 4 MG TABLET PO PRN ×2 (07:46→18:40)
[2019-05-04] MEDS: CLORAZEPATE 3.75 MG TABLET PO PRN ×2 (07:47→20:49)
[2019-05-04] MEDS: ESCITALOPRAM 10 MG TABLET PO SCH ×3 (07:48→20:54)
[2019-05-04] MEDS: DILTIAZEM CD 120 MG CAPSULE PO SCH ×3 (07:48→20:50)
[2019-05-04] MEDS: PANTOPRAZOLE 40 MG TABLET PO SCH ×2 (07:48→08:06)
[2019-05-04] MEDS: METOPROLOL TARTRATE 50 MG TABLET PO SCH ×3 (07:48→20:54)
[2019-05-04] MEDS: LACTATED RINGERS 1,000 ML IV SCH ×2 (07:52→20:55)
[2019-05-04] MEDS: POTASSIUM CHLORIDE INJ 40 MEQ in LACTATED RINGERS 1,000 ML IV SCH (07:53)
[2019-05-04] MEDS: ARIPiprazole 5 MG TABLET PO SCH (20:49)
[2019-05-04] MEDS: MELATONIN 3 MG TABLET PO PRN (20:50)
[2019-05-05] MEDS: KETOROLAC 15 MG/1 ML VIAL IV SCH ×5 (03:53→22:23)
[2019-05-05] MEDS: LACTATED RINGERS 1,000 ML IV SCH (05:22)
[2019-05-05 06:03] LABS: Albumin 2.8 G/DL (3.4-5.0); Bilirubin,Total 0.4 MG/DL (0.2-1.0); Calcium 9.2 MG/DL (8.5-10.1); Osmolality,Calculated 255.1 MOS/KG (273-304); Total Protein 5.7 G/DL (6.4-8.3)
[2019-05-05 06:38] LABS: Basophils % 0.2 % (0.0-0.8); Eosinophils % 0.2 % (0.00-10.9); Hematocrit 33.6 VOL% (35.7-47.0); Hemoglobin 10.9 GM/DL (12.0-16.0); Immature Granulocytes Absolute 0.13 #; Lymphocytes # 0.5 10*3/uL (1.4-4.0); Lymphocytes % 3.7 % (21.3-54.2); Mean Corpuscular HGB Conc 32.4 GM/DL (32-36); Mean Corpuscular Volume 92.3 FL (87-102); Mean Platelet Volume 9.3 FL (9.6-12.0); Monocytes % 2.8 % (1.7-12.7); Neutrophils % 92.1 % (38.7-73.9); Platelet Count 104 T/CUMM (130-400); Red Blood Count 3.64 MC/CUMM (3.8-5.5); Red Cell Distribution Width 15.4 % (9.3-17.3); White Blood Count 12.9 T/CUMM (4-12)
[2019-05-05 06:45] LABS: Lymphocytes 2 % (20-55); Platelet Estimate Decreased; Polychromasia Few; Segmented Neutrophils 95 % (50-85); Total Cells Counted 100
[2019-05-05] MEDS ORDERED: SODIUM CHLORIDE 0.9% 1,000 ML IV SCH (07:30)
[2019-05-05] MEDS: ONDANSETRON ODT 4 MG TABLET PO PRN (08:05)
[2019-05-05] MEDS: PANTOPRAZOLE 40 MG TABLET PO SCH (08:05)
[2019-05-05] MEDS: DILTIAZEM CD 120 MG CAPSULE PO SCH ×2 (08:05→22:23)
[2019-05-05] MEDS: ESCITALOPRAM 10 MG TABLET PO SCH ×2 (08:05→22:22)
[2019-05-05] MEDS: METOPROLOL TARTRATE 50 MG TABLET PO SCH ×2 (08:05→22:23)
[2019-05-05] MEDS: ARIPiprazole 5 MG TABLET PO SCH (22:21)
[2019-05-05] MEDS: traZODone 50 MG TABLET PO PRN (22:22)
[2019-05-06 04:50] LABS: Eosinophils # 0.1 10*3/uL (0.0-0.87); Eosinophils % 1.2 % (0.00-10.9); Hematocrit 31.5 VOL% (35.7-47.0); Hemoglobin 10.5 GM/DL (12.0-16.0); Immature Granulocytes % 0.9 %; Immature Granulocytes Absolute 0.06 #; Lymphocytes # 0.4 10*3/uL (1.4-4.0); Mean Corpuscular HGB Conc 33.3 GM/DL (32-36); Mean Corpuscular Volume 89.7 FL (87-102); Mean Platelet Volume 10.4 FL (9.6-12.0); Monocytes % 5.4 % (1.7-12.7); Neutrophils % 86.5 % (38.7-73.9); Red Blood Count 3.51 MC/CUMM (3.8-5.5); Red Cell Distribution Width 15.2 % (9.3-17.3); White Blood Count 6.9 T/CUMM (4-12)
[2019-05-06] MEDS: KETOROLAC 15 MG/1 ML VIAL IV SCH ×4 (04:50→23:32)
[2019-05-06 04:55] LABS: Platelet Count 76 T/CUMM (130-400)
[2019-05-06 05:05] LABS: Calcium 8.7 MG/DL (8.5-10.1); Osmolality,Calculated 246.6 MOS/KG (273-304)
[2019-05-06] MEDS ORDERED: POTASSIUM CHLORIDE 20 MEQ TABLET PO ONE (06:57)
[2019-05-06] MEDS ORDERED: MAGNESIUM SULF RIDER 4 GM in PREMIX 1 EACH IV ONE (06:57)
[2019-05-06] MEDS ORDERED: TOLVAPTAN 15 MG TABLET PO ONE (06:58)
[2019-05-06] MEDS: ESCITALOPRAM 10 MG TABLET PO SCH ×2 (08:51→21:11)
[2019-05-06] MEDS: DILTIAZEM CD 120 MG CAPSULE PO SCH ×2 (08:51→21:12)
[2019-05-06] MEDS: PANTOPRAZOLE 40 MG TABLET PO SCH (08:54)
[2019-05-06] MEDS: METOPROLOL TARTRATE 50 MG TABLET PO SCH ×2 (09:52→21:13)
[2019-05-06] MEDS: CLORAZEPATE 3.75 MG TABLET PO PRN (20:05)
[2019-05-06] MEDS: ARIPiprazole 5 MG TABLET PO SCH (21:12)
[2019-05-06] MEDS: MELATONIN 3 MG TABLET PO PRN (21:12)
[2019-05-06] MEDS: traZODone 50 MG TABLET PO PRN (21:13)
[2019-05-07] MEDS: KETOROLAC 15 MG/1 ML VIAL IV SCH ×4 (04:55→21:50)
[2019-05-07 08:28] LABS: Calcium 9.5 MG/DL (8.5-10.1); Osmolality,Calculated 253.2 MOS/KG (273-304)
[2019-05-07] MEDS: ESCITALOPRAM 10 MG TABLET PO SCH ×2 (09:17→21:44)
[2019-05-07] MEDS: DILTIAZEM CD 120 MG CAPSULE PO SCH ×2 (09:17→21:43)
[2019-05-07] MEDS: PANTOPRAZOLE 40 MG TABLET PO SCH (09:17)
[2019-05-07] MEDS: METOPROLOL TARTRATE 50 MG TABLET PO SCH ×2 (09:56→21:44)
[2019-05-07] MEDS ORDERED: SODIUM CHLORIDE 0.9% 1,000 ML IV SCH (14:30)
[2019-05-07] MEDS: ARIPiprazole 5 MG TABLET PO SCH (21:43)
[2019-05-07] MEDS: MELATONIN 3 MG TABLET PO PRN (21:44)
[2019-05-07] MEDS: traZODone 50 MG TABLET PO PRN (23:37)
[2019-05-08] MEDS: KETOROLAC 15 MG/1 ML VIAL IV SCH ×2 (05:16→09:27)
[2019-05-08 05:49] LABS: Calcium 9.1 MG/DL (8.5-10.1); Osmolality,Calculated 257.9 MOS/KG (273-304)
[2019-05-08 06:04] LABS: Basophils % 0.1 % (0.0-0.8); Eosinophils # 0.1 10*3/uL (0.0-0.87); Eosinophils % 0.9 % (0.00-10.9); Hematocrit 30.5 VOL% (35.7-47.0); Hemoglobin 10.2 GM/DL (12.0-16.0); Immature Granulocytes % 0.7 %; Immature Granulocytes Absolute 0.05 #; Lymphocytes # 0.6 10*3/uL (1.4-4.0); Lymphocytes % 9.3 % (21.3-54.2); Mean Corpuscular HGB Conc 33.4 GM/DL (32-36); Mean Corpuscular Volume 89.7 FL (87-102); Platelet Count 96 T/CUMM (130-400); Red Cell Distribution Width 15.4 % (9.3-17.3); White Blood Count 6.9 T/CUMM (4-12)
[2019-05-08 07:10] LABS: Anisocytosis Slight; Giant Platelets Few; Platelet Estimate Decreased; Poikilocytosis Slight
[2019-05-08] MEDS: PANTOPRAZOLE 40 MG TABLET PO SCH (09:27)
[2019-05-08] MEDS: ESCITALOPRAM 10 MG TABLET PO SCH (09:27)
[2019-05-08] MEDS: METOPROLOL TARTRATE 50 MG TABLET PO SCH (09:27)
[2019-05-08] MEDS: DILTIAZEM CD 120 MG CAPSULE PO SCH (09:27)
[2019-05-08 12:40] VITALS: BP 63/49
[2019-05-08] MEDS ORDERED: HEPARIN LOCK FLUSH 500 UNIT/5 ML SYRINGE IV PRN (13:07)
[2019-05-08] MEDS ORDERED: HEPARIN LOCK FLUSH 500 UNIT/5 ML SYRINGE IV SCH (13:30)
== END 2019-05-08 16:25 | disposition home health service (06) | DRG 231 ==
LOC: N.ED 11:17 → N.EDINP 18:53 → SUATTDRO 18:53 → N.EDINP 20:45 → N.5E 21:26
PROVIDERS: ADMIT Family Medicine; ATTEND Internal Medicine

== ENCOUNTER 2019-06-04 22:21 | Inpatient (IN) ==
[2019-06-04] MEDS ORDERED: ONDANSETRON 4 MG/2 ML VIAL IV STA (23:39)
[2019-06-04] MEDS ORDERED: SODIUM CHLORIDE 0.9% 1,000 ML IV STA (23:39)
[2019-06-04 23:52] LABS: Basophils % 0.1 % (0.0-0.8); Hematocrit 36.7 VOL% (35.7-47.0); Hemoglobin 12.5 GM/DL (12.0-16.0); Immature Granulocytes % 0.7 %; Immature Granulocytes Absolute 0.13 #; Lymphocytes # 0.4 10*3/uL (1.4-4.0); Lymphocytes % 2.2 % (21.3-54.2); Mean Corpuscular HGB Conc 34.1 GM/DL (32-36); Mean Corpuscular Volume 84.4 FL (87-102); Mean Platelet Volume 10.2 FL (9.6-12.0); Monocytes % 4.3 % (1.7-12.7); Neutrophils % 92.7 % (38.7-73.9); Platelet Count 249 T/CUMM (130-400); Red Blood Count 4.35 MC/CUMM (3.8-5.5); Red Cell Distribution Width 15.8 % (9.3-17.3); White Blood Count 19.8 T/CUMM (4-12)
[2019-06-05 00:29] LABS: Lymphocytes 1 % (20-55); Platelet Estimate Normal; Polychromasia Few; Segmented Neutrophils 97 % (50-85); Total Cells Counted 100
[2019-06-05] MEDS ORDERED: SODIUM CHLORIDE 0.9% 1,000 ML IV STA (00:52)
[2019-06-05 01:26] LABS: Albumin 2.8 G/DL (3.4-5.0); Bilirubin,Total 0.4 MG/DL (0.2-1.0); Calcium 9.6 MG/DL (8.5-10.1); Osmolality,Calculated 262.1 MOS/KG (273-304); Total Protein 6.8 G/DL (6.4-8.3)
[2019-06-05] MEDS ORDERED: ONDANSETRON 4 MG/2 ML VIAL IV STA (02:43)
[2019-06-05] MEDS ORDERED: ENOXAPARIN 30 MG/0.3 ML SYRINGE SUBCUT SCH (04:30)
[2019-06-05] MEDS: SODIUM CHLORIDE 0.45% 1,000 ML IV SCH ×2 (05:04→19:31)
[2019-06-05] MEDS: POTASSIUM CHLORIDE RIDER 10 MEQ in PREMIX 1 EACH IV SCH ×2 (05:15→06:29)
[2019-06-05] MEDS: HYDROmorphone 2 MG/1 ML VIAL IV PRN ×3 (06:41→15:24)
[2019-06-05 06:52] LABS: Basophils % 0.1 % (0.0-0.8); Eosinophils % 0.1 % (0.00-10.9); Hematocrit 34.5 VOL% (35.7-47.0); Hemoglobin 11.5 GM/DL (12.0-16.0); Immature Granulocytes % 0.6 %; Lymphocytes # 0.5 10*3/uL (1.4-4.0); Lymphocytes % 2.8 % (21.3-54.2); Mean Corpuscular HGB Conc 33.3 GM/DL (32-36); Mean Corpuscular Volume 85.8 FL (87-102); Mean Platelet Volume 10.3 FL (9.6-12.0); Monocytes % 5.6 % (1.7-12.7); Neutrophils % 90.8 % (38.7-73.9); Platelet Count 232 T/CUMM (130-400); Red Blood Count 4.02 MC/CUMM (3.8-5.5); White Blood Count 17.5 T/CUMM (4-12)
[2019-06-05 07:10] LABS: Hypochromasia 1+; Lymphocytes 2 % (20-55); Platelet Estimate Adequate; Segmented Neutrophils 89 % (50-85); Total Cells Counted 100
[2019-06-05 07:20] LABS: Albumin 2.7 G/DL (3.4-5.0); Bilirubin,Total 0.4 MG/DL (0.2-1.0); Calcium 9.8 MG/DL (8.5-10.1); Osmolality,Calculated 269.5 MOS/KG (273-304); Total Protein 7.1 G/DL (6.4-8.3)
[2019-06-05] MEDS: ONDANSETRON 4 MG/2 ML VIAL IV PRN (10:14)
[2019-06-05] MEDS ORDERED: POTASSIUM CHLORIDE 20 MEQ TABLET PO PRN (11:21)
[2019-06-05] MEDS ORDERED: PROMETHAZINE INJ 12.5 MG in SODIUM CHLORIDE 0.9% 50 ML IV PRN (13:40)
[2019-06-05] MEDS: POTASSIUM CHLORIDE RIDER 20 MEQ in PREMIX 1 EACH IV PRN ×2 (13:58→19:30)
[2019-06-05] MEDS ORDERED: SODIUM CHLORIDE 0.9% 250 ML IV ONE (17:02)
[2019-06-05] MEDS ORDERED: SODIUM CHLORIDE 0.9% 1,000 ML IV PRN (17:26)
[2019-06-05 17:41] LABS: Basophils # 0.1 10*3/uL (0.0-0.2); Basophils % 0.2 % (0.0-0.8); Hematocrit 29.6 VOL% (35.7-47.0); Hemoglobin 9.6 GM/DL (12.0-16.0); Immature Granulocytes Absolute 0.25 #; Lymphocytes # 0.4 10*3/uL (1.4-4.0); Lymphocytes % 1.5 % (21.3-54.2); Mean Corpuscular HGB Conc 32.4 GM/DL (32-36); Mean Corpuscular Volume 88.9 FL (87-102); Mean Platelet Volume 10.1 FL (9.6-12.0); Monocytes % 5.2 % (1.7-12.7); Neutrophils % 92.1 % (38.7-73.9); Platelet Count 201 T/CUMM (130-400); Red Blood Count 3.33 MC/CUMM (3.8-5.5); Red Cell Distribution Width 16.3 % (9.3-17.3); White Blood Count 24.6 T/CUMM (4-12)
[2019-06-05 18:00] LABS: Alanine Aminotransferase 14 U/L (13-56); Albumin 2.4 G/DL (3.4-5.0); Alkaline Phosphatase 125 U/L (45-117); Aspartate Amino Transferase 29 U/L (0-37); Bilirubin,Total < 0.39 MG/DL (0.2-1.0); Blood Urea Nitrogen 30 MG/DL (7-18); Glucose 181 MG/DL (74-106); Osmolality,Calculated 276.4 MOS/KG (273-304); Total Protein 6.1 G/DL (6.4-8.3)
[2019-06-05 18:09] LABS: Lymphocytes 3 % (20-55); Platelet Estimate Normal; Segmented Neutrophils 95 % (50-85); Total Cells Counted 100
[2019-06-05 18:10] LABS: Hypochromasia 1+
[2019-06-05] MEDS ORDERED: PHENYLEPHRINE DRIP 40 MG/250 ML PREMIX IV ONE (18:35)
[2019-06-05] MEDS: SODIUM CHLORIDE 0.9% 1,000 ML IV SCH ×2 (19:15→20:02)
[2019-06-05] MEDS ORDERED: PHENYLEPHRINE DRIP 40 MG/250 ML PREMIX IV PRN (19:16)
[2019-06-05] MEDS ORDERED: SODIUM CHLORIDE 0.9% 1,000 ML IV ONE (20:00)
[2019-06-05] MEDS ORDERED: FAMOTIDINE 20 MG/2 ML VIAL IV SCH ×3 (20:00→21:00)
[2019-06-05] MEDS: PANTOPRAZOLE 40 MG VIAL IV SCH (21:31)
[2019-06-05] MEDS: PIPERACILLIN/TAZOBACTAM 3.375 MG in SODIUM CHLORIDE 0.9% 100 ML IV SCH (21:32)
[2019-06-05 23:28] LABS: Hematocrit 27.1 VOL% (35.7-47.0); Hemoglobin 8.7 GM/DL (12.0-16.0)
[2019-06-05 23:37] LABS: Apearance,Urine CLOUDY (Clear); Bilirubin,Urine Negative (Negative); Blood, Urine Negative (Negative); Glucose,Urine (UA) Negative (Negative); Hyaline Casts,Urine 26 /LPF (0-3); Ketones,Urine Negative (Negative); Mucus,Urine Many /LPF (Occasional); Nitrite,Urine Negative (Negative); Protein,Urine 30 MG/DL; Squamous Epithelial Cell,Urine Occasional /HPF (0-10); Urine Color Amber (Yellow); Urine Specific Gravity 1.017 (1.001-1.035); Urine Urobilinogen < 2.0 EU/DL (0.2-1.0); White Blood Cell Casts,Urine 26 /LPF (<1)
[2019-06-06] MEDS: ONDANSETRON 4 MG/2 ML VIAL IV PRN ×2 (00:07→08:08)
[2019-06-06] MEDS: POTASSIUM CHLORIDE RIDER 20 MEQ in PREMIX 1 EACH IV PRN ×2 (01:27→06:59)
[2019-06-06] MEDS ORDERED: PROMETHAZINE INJ 25 MG in SODIUM CHLORIDE 0.9% 50 ML IV PRN (01:47)
[2019-06-06] MEDS: SODIUM CHLORIDE 0.9% 1,000 ML IV SCH (02:41)
[2019-06-06] MEDS ORDERED: SODIUM CHLORIDE 0.9% 250 ML IV ONE (04:31)
[2019-06-06 04:51] LABS: Basophils % 0.2 % (0.0-0.8); Hematocrit 25.3 VOL% (35.7-47.0); Hemoglobin 8.1 GM/DL (12.0-16.0); Immature Granulocytes % 0.8 %; Immature Granulocytes Absolute 0.18 #; Lymphocytes # 0.4 10*3/uL (1.4-4.0); Lymphocytes % 1.8 % (21.3-54.2); Mean Platelet Volume 10.3 FL (9.6-12.0); Monocytes % 4.1 % (1.7-12.7); Neutrophils % 93.1 % (38.7-73.9); Platelet Count 166 T/CUMM (130-400); Red Blood Count 2.81 MC/CUMM (3.8-5.5); Red Cell Distribution Width 16.5 % (9.3-17.3); White Blood Count 22.2 T/CUMM (4-12)
[2019-06-06 05:21] LABS: Calcium 8.9 MG/DL (8.5-10.1); Osmolality,Calculated 284.7 MOS/KG (273-304)
[2019-06-06 05:30] LABS: Lymphocytes 2 % (20-55); Segmented Neutrophils 96 % (50-85); Total Cells Counted 100
[2019-06-06 05:31] LABS: Hypochromasia 1+; Microcytosis 1+; Platelet Estimate Adequate
[2019-06-06] MEDS: PIPERACILLIN/TAZOBACTAM 3.375 MG in SODIUM CHLORIDE 0.9% 100 ML IV SCH ×2 (06:00→20:13)
[2019-06-06] MEDS ORDERED: SODIUM CHLORIDE 0.9% 1,000 ML IV PRN ×3 (07:09→11:27)
[2019-06-06] MEDS ORDERED: ONDANSETRON 4 MG/2 ML VIAL ONE (08:05)
[2019-06-06] MEDS ORDERED: LIDOCAINE 2% 5 ML VIAL ONE ×2 (09:00→12:00)
[2019-06-06] MEDS ORDERED: PROPOFOL 200 MG/20 ML VIAL IV ONE ×2 (09:00→12:00)
[2019-06-06] MEDS: PANTOPRAZOLE 40 MG VIAL IV SCH ×2 (10:26→20:10)
[2019-06-06] MEDS ORDERED: ETOMIDATE 20 MG/10 ML VIAL IV ONE (12:00)
[2019-06-06 20:31] LABS: Hematocrit 33.6 VOL% (35.7-47.0); Hemoglobin 10.8 GM/DL (12.0-16.0)
[2019-06-06] MEDS: LORazepam 2 MG/1 ML VIAL IV PRN (22:19)
[2019-06-07 04:41] LABS: Basophils % 0.2 % (0.0-0.8); Hematocrit 32.2 VOL% (35.7-47.0); Hemoglobin 10.3 GM/DL (12.0-16.0); Immature Granulocytes % 0.9 %; Immature Granulocytes Absolute 0.15 #; Lymphocytes # 0.5 10*3/uL (1.4-4.0); Lymphocytes % 2.7 % (21.3-54.2); Mean Platelet Volume 9.8 FL (9.6-12.0); Monocytes % 4.1 % (1.7-12.7); Neutrophils % 92.1 % (38.7-73.9); Platelet Count 103 T/CUMM (130-400); Red Blood Count 3.62 MC/CUMM (3.8-5.5); Red Cell Distribution Width 17.2 % (9.3-17.3); White Blood Count 16.9 T/CUMM (4-12)
[2019-06-07 05:03] LABS: Band Neutrophils 1 % (0-10); Hypochromasia 1+; Lymphocytes 5 % (20-55); Platelet Estimate Decreased; Segmented Neutrophils 90 % (50-85); Total Cells Counted 100
[2019-06-07 05:04] LABS: Microcytosis Slight
[2019-06-07 05:31] LABS: Calcium 9.6 MG/DL (8.5-10.1); Osmolality,Calculated 295.8 MOS/KG (273-304)
[2019-06-07] MEDS ORDERED: DEXTROSE 50% 25 GM/50 ML VIAL IV PRN (05:37)
[2019-06-07] MEDS ORDERED: GLUCAGON 1 MG VIAL IM PRN (05:37)
[2019-06-07] MEDS: PIPERACILLIN/TAZOBACTAM 3.375 MG in SODIUM CHLORIDE 0.9% 100 ML IV SCH ×2 (06:44→18:35)
[2019-06-07] MEDS: POTASSIUM CHLORIDE RIDER 20 MEQ in PREMIX 1 EACH IV PRN ×3 (06:44→18:42)
[2019-06-07] MEDS ORDERED: DEXTROSE 10% 25 GM/250 ML BAG IV PRN (07:00)
[2019-06-07] MEDS: DEXTROSE 5% NACL 0.9% 1,000 ML IV SCH ×2 (08:35→21:18)
[2019-06-07] MEDS: PANTOPRAZOLE 40 MG VIAL IV SCH ×2 (08:50→20:47)
[2019-06-07] MEDS: METOCLOPRAMIDE 10 MG/2 ML VIAL IV SCH ×2 (15:29→20:45)
[2019-06-07] MEDS: POLYETHYLENE GLYCOL POWDER 17 GM PACK PO SCH (20:42)
[2019-06-07] MEDS: POTASSIUM CHLORIDE RIDER 10 MEQ in PREMIX 1 EACH IV PRN (20:52)
[2019-06-08] MEDS: LORazepam 2 MG/1 ML VIAL IV PRN (03:25)
[2019-06-08] MEDS: METOCLOPRAMIDE 10 MG/2 ML VIAL IV SCH ×4 (04:32→21:15)
[2019-06-08] MEDS: PIPERACILLIN/TAZOBACTAM 3.375 MG in SODIUM CHLORIDE 0.9% 100 ML IV SCH (06:27)
[2019-06-08 08:51] LABS: Basophils % 0.2 % (0.0-0.8); Eosinophils % 0.3 % (0.00-10.9); Hematocrit 29.3 VOL% (35.7-47.0); Hemoglobin 8.9 GM/DL (12.0-16.0); Immature Granulocytes % 0.8 %; Lymphocytes # 0.5 10*3/uL (1.4-4.0); Lymphocytes % 3.7 % (21.3-54.2); Mean Corpuscular HGB Conc 30.4 GM/DL (32-36); Mean Corpuscular Volume 92.4 FL (87-102); Mean Platelet Volume 10.4 FL (9.6-12.0); Platelet Count 96 T/CUMM (130-400); Red Blood Count 3.17 MC/CUMM (3.8-5.5); Red Cell Distribution Width 17.2 % (9.3-17.3); White Blood Count 12.2 T/CUMM (4-12)
[2019-06-08] MEDS ORDERED: BISACODYL 5 MG TABLET PO PRN (08:57)
[2019-06-08 09:13] LABS: Anisocytosis Slight; Band Neutrophils 3 % (0-10); Calcium 9.4 MG/DL (8.5-10.1); Eosinophils 1 % (0-10); Lymphocytes 2 % (20-55); Macrocytosis Slight; Osmolality,Calculated 290.8 MOS/KG (273-304); Platelet Estimate Decreased; Segmented Neutrophils 92 % (50-85); Total Cells Counted 100
[2019-06-08] MEDS: PANTOPRAZOLE 40 MG VIAL IV SCH ×2 (09:16→21:13)
[2019-06-08] MEDS: METOPROLOL TARTRATE 25 MG TABLET PO SCH ×2 (09:17→21:13)
[2019-06-08] MEDS: POLYETHYLENE GLYCOL POWDER 17 GM PACK PO SCH ×2 (09:17→21:13)
[2019-06-08] MEDS ORDERED: MAGNESIUM SULF RIDER 2 GM in PREMIX 1 EACH IV ONE (09:35)
[2019-06-08] MEDS: POTASSIUM CHLORIDE RIDER 20 MEQ in PREMIX 1 EACH IV PRN ×2 (10:35→12:20)
[2019-06-08] MEDS: DEXTROSE 5% NACL 0.9% 1,000 ML IV SCH (12:20)
[2019-06-08] MEDS: FLUCONAZOLE INJ 100 MG in IV BAG 1 EACH IV SCH (15:08)
[2019-06-08] MEDS: PIPERACILLIN/TAZOBACTAM 3,375 MG in SODIUM CHLORIDE 0.9% 100 ML IV SCH ×2 (15:56→23:15)
[2019-06-09] MEDS: METOCLOPRAMIDE 10 MG/2 ML VIAL IV SCH ×4 (02:38→21:08)
[2019-06-09 06:00] LABS: Basophils % 0.1 % (0.0-0.8); Eosinophils # 0.2 10*3/uL (0.0-0.87); Eosinophils % 2.2 % (0.00-10.9); Hematocrit 27.4 VOL% (35.7-47.0); Hemoglobin 8.4 GM/DL (12.0-16.0); Immature Granulocytes % 0.9 %; Immature Granulocytes Absolute 0.07 #; Lymphocytes # 0.5 10*3/uL (1.4-4.0); Lymphocytes % 5.5 % (21.3-54.2); Mean Corpuscular HGB Conc 30.7 GM/DL (32-36); Mean Corpuscular Volume 93.5 FL (87-102); Mean Platelet Volume 10.7 FL (9.6-12.0); Monocytes % 5.5 % (1.7-12.7); Neutrophils % 85.8 % (38.7-73.9); Platelet Count 79 T/CUMM (130-400); Red Blood Count 2.93 MC/CUMM (3.8-5.5); Red Cell Distribution Width 16.9 % (9.3-17.3); White Blood Count 8.2 T/CUMM (4-12)
[2019-06-09] MEDS: PIPERACILLIN/TAZOBACTAM 3,375 MG in SODIUM CHLORIDE 0.9% 100 ML IV SCH ×3 (06:08→22:20)
[2019-06-09 06:36] LABS: Calcium 9.1 MG/DL (8.5-10.1)
[2019-06-09 06:48] LABS: Band Neutrophils 9 % (0-10); Eosinophils 1 % (0-10); Lymphocytes 5 % (20-55); Platelet Estimate Decreased; Segmented Neutrophils 80 % (50-85); Total Cells Counted 100
[2019-06-09 06:49] LABS: Anisocytosis 1+
[2019-06-09 06:50] LABS: Macrocytosis Slight
[2019-06-09] MEDS: PANTOPRAZOLE 40 MG VIAL IV SCH ×2 (08:48→21:10)
[2019-06-09] MEDS: DEXTROSE 5% NACL 0.9% 1,000 ML IV SCH ×2 (08:48→22:19)
[2019-06-09] MEDS: METOPROLOL TARTRATE 25 MG TABLET PO SCH ×2 (08:54→21:07)
[2019-06-09] MEDS: POLYETHYLENE GLYCOL POWDER 17 GM PACK PO SCH ×2 (08:54→21:13)
[2019-06-09] MEDS: FLUCONAZOLE INJ 100 MG in IV BAG 1 EACH IV SCH (15:49)
[2019-06-09] MEDS: busPIRone 5 MG TABLET PO SCH (21:07)
[2019-06-10] MEDS: METOCLOPRAMIDE 10 MG/2 ML VIAL IV SCH ×2 (02:42→08:20)
[2019-06-10 05:01] LABS: Basophils % 0.2 % (0.0-0.8); Eosinophils # 0.1 10*3/uL (0.0-0.87); Eosinophils % 2.3 % (0.00-10.9); Hematocrit 27.8 VOL% (35.7-47.0); Hemoglobin 8.8 GM/DL (12.0-16.0); Immature Granulocytes % 1.5 %; Immature Granulocytes Absolute 0.09 #; Lymphocytes # 0.5 10*3/uL (1.4-4.0); Mean Corpuscular HGB Conc 31.7 GM/DL (32-36); Mean Corpuscular Volume 91.1 FL (87-102); Mean Platelet Volume 11.1 FL (9.6-12.0); Monocytes % 6.7 % (1.7-12.7); Neutrophils % 81.3 % (38.7-73.9); Platelet Count 77 T/CUMM (130-400); Red Blood Count 3.05 MC/CUMM (3.8-5.5); Red Cell Distribution Width 16.4 % (9.3-17.3); White Blood Count 6.1 T/CUMM (4-12)
[2019-06-10 05:31] LABS: Osmolality,Calculated 281.1 MOS/KG (273-304)
[2019-06-10 05:33] LABS: Eosinophils 2 % (0-10); Hypochromasia 1+; Lymphocytes 11 % (20-55); Macrocytosis Slight; Platelet Estimate Decreased; Segmented Neutrophils 82 % (50-85); Total Cells Counted 100
[2019-06-10] MEDS: POTASSIUM CHLORIDE RIDER 20 MEQ in PREMIX 1 EACH IV PRN ×2 (06:10→08:37)
[2019-06-10] MEDS: PIPERACILLIN/TAZOBACTAM 3,375 MG in SODIUM CHLORIDE 0.9% 100 ML IV SCH (06:11)
[2019-06-10] MEDS: METOPROLOL TARTRATE 25 MG TABLET PO SCH ×2 (08:18→20:43)
[2019-06-10] MEDS: busPIRone 5 MG TABLET PO SCH ×2 (08:19→20:43)
[2019-06-10] MEDS: MEGESTROL ES 125 MG/ML 30 ML/BOTTLE PO SCH (08:19)
[2019-06-10] MEDS: PANTOPRAZOLE 40 MG VIAL IV SCH (08:20)
[2019-06-10] MEDS: POLYETHYLENE GLYCOL POWDER 17 GM PACK PO SCH ×2 (08:45→20:44)
[2019-06-10] MEDS: SERTRALINE 25 MG TABLET PO SCH (09:46)
[2019-06-10] MEDS: POTASSIUM CHLORIDE RIDER 10 MEQ in PREMIX 1 EACH IV PRN (11:53)
[2019-06-10] MEDS: METOCLOPRAMIDE 10 MG/10 ML UDCUP PO SCH ×3 (12:06→20:43)
[2019-06-10] MEDS: DEXTROSE 5% NACL 0.9% 1,000 ML IV SCH (16:31)
[2019-06-10] MEDS ORDERED: MAGNESIUM SULF RIDER 4 GM in PREMIX 1 EACH IV PRN (16:46)
[2019-06-10] MEDS ORDERED: MAGNESIUM SULF RIDER 2 GM in PREMIX 1 EACH IV PRN (16:46)
[2019-06-10] MEDS: PANTOPRAZOLE 40 MG TABLET PO SCH (20:43)
[2019-06-10] MEDS: AMOXICILLIN/CLAV 875 MG TABLET PO SCH (20:43)
[2019-06-10] MEDS: MAGNESIUM OXIDE 400 MG TABLET PO SCH (20:43)
[2019-06-11 04:18] LABS: Basophils % 0.3 % (0.0-0.8); Eosinophils # 0.1 10*3/uL (0.0-0.87); Eosinophils % 1.7 % (0.00-10.9); Hematocrit 29.9 VOL% (35.7-47.0); Hemoglobin 9.4 GM/DL (12.0-16.0); Immature Granulocytes % 1.8 %; Immature Granulocytes Absolute 0.14 #; Lymphocytes # 0.7 10*3/uL (1.4-4.0); Lymphocytes % 8.6 % (21.3-54.2); Mean Corpuscular HGB Conc 31.4 GM/DL (32-36); Mean Corpuscular Volume 90.9 FL (87-102); Mean Platelet Volume 10.4 FL (9.6-12.0); Monocytes % 7.6 % (1.7-12.7); Platelet Count 85 T/CUMM (130-400); Red Blood Count 3.29 MC/CUMM (3.8-5.5); Red Cell Distribution Width 15.9 % (9.3-17.3); White Blood Count 7.7 T/CUMM (4-12)
[2019-06-11 04:36] LABS: Hypochromasia Slight; Platelet Estimate Decreased
[2019-06-11 04:37] LABS: Macrocytosis Slight
[2019-06-11 04:41] LABS: Calcium 8.6 MG/DL (8.5-10.1); Osmolality,Calculated 277.5 MOS/KG (273-304)
[2019-06-11] MEDS ORDERED: MORPHINE 4 MG/1 ML VIAL IV ONE (07:59)
[2019-06-11] MEDS: METOCLOPRAMIDE 10 MG/10 ML UDCUP PO SCH ×2 (08:18→12:30)
[2019-06-11] MEDS: POLYETHYLENE GLYCOL POWDER 17 GM PACK PO SCH (08:19)
[2019-06-11] MEDS: busPIRone 5 MG TABLET PO SCH (08:20)
[2019-06-11] MEDS: SERTRALINE 25 MG TABLET PO SCH (08:20)
[2019-06-11] MEDS: AMOXICILLIN/CLAV 875 MG TABLET PO SCH (08:20)
[2019-06-11] MEDS: MAGNESIUM OXIDE 400 MG TABLET PO SCH (08:20)
[2019-06-11] MEDS: PANTOPRAZOLE 40 MG TABLET PO SCH (08:21)
[2019-06-11] MEDS: METOPROLOL TARTRATE 25 MG TABLET PO SCH (08:21)
[2019-06-11] MEDS ORDERED: FLUCONAZOLE 100 MG TABLET PO SCH (09:00)
[2019-06-11] MEDS: MEGESTROL ES 125 MG/ML 30 ML/BOTTLE PO SCH (09:04)
[2019-06-11 12:15] VITALS: BP 131/83
[2019-06-11] MEDS ORDERED: HEPARIN LOCK FLUSH 500 UNIT/5 ML SYRINGE IV ONE (15:23)
== END 2019-06-11 15:52 | disposition home health service (06) | DRG 242 ==
LOC: N.ED 22:21 → N.EDINP 06-05 04:17 → SUATTDRO 06-05 04:17 → N.4E 06-05 05:14 → N.CC 06-05 17:58 → N.4E 06-08 12:53
PROVIDERS: ADMIT Family Medicine; ATTEND Internal Medicine

== ENCOUNTER 2019-07-02 23:44 | Observation (INO) ==
[2019-07-03 01:39] LABS: Alanine Aminotransferase 12 U/L (13-56); Albumin 2.2 G/DL (3.4-5.0); Alkaline Phosphatase 154 U/L (45-117); Aspartate Amino Transferase 56 U/L (0-37); Bilirubin,Total < 0.39 MG/DL (0.2-1.0); Blood Urea Nitrogen 35 MG/DL (7-18); Calcium 10.5 MG/DL (8.5-10.1); Glucose 108 MG/DL (74-106); Total Protein 7.2 G/DL (6.4-8.3)
[2019-07-03] MEDS ORDERED: SODIUM CHLORIDE 0.9% 1,000 ML IV STA (03:09)
[2019-07-03 03:32] LABS: Basophils % 0.2 % (0.0-0.8); Eosinophils % 0.1 % (0.00-10.9); Hematocrit 30.1 VOL% (35.7-47.0); Hemoglobin 9.4 GM/DL (12.0-16.0); Immature Granulocytes Absolute 0.11 #; Lymphocytes # 0.5 10*3/uL (1.4-4.0); Lymphocytes % 4.3 % (21.3-54.2); Mean Corpuscular HGB Conc 31.2 GM/DL (32-36); Mean Corpuscular Volume 89.6 FL (87-102); Mean Platelet Volume 9.8 FL (9.6-12.0); Monocytes % 4.5 % (1.7-12.7); Neutrophils % 89.9 % (38.7-73.9); Platelet Count 167 T/CUMM (130-400); Red Blood Count 3.36 MC/CUMM (3.8-5.5); Red Cell Distribution Width 16.4 % (9.3-17.3); White Blood Count 11.3 T/CUMM (4-12)
[2019-07-03 03:38] LABS: INR 0.9; Partial Thromboplastin Time 22.6 SECS (20.8-36.0)
[2019-07-03 03:43] LABS: Albumin 2.2 G/DL (3.4-5.0); Bilirubin,Total 0.4 MG/DL (0.2-1.0); Calcium 10.7 MG/DL (8.5-10.1)
[2019-07-03 04:01] LABS: Lymphocytes 2 % (20-55); Platelet Estimate Adequate; Segmented Neutrophils 94 % (50-85); Total Cells Counted 100
[2019-07-03 04:03] LABS: Hypochromasia 1+; Macrocytosis Slight
[2019-07-03] MEDS ORDERED: ONDANSETRON 4 MG/2 ML VIAL IV PRN (04:56)
[2019-07-03] MEDS ORDERED: SODIUM CHLORIDE 0.9% 1,000 ML IV SCH (05:00)
[2019-07-03] MEDS: ENOXAPARIN 40 MG/0.4 ML SYRINGE SUBCUT SCH (08:43)
[2019-07-03] MEDS: PANTOPRAZOLE 40 MG TABLET PO SCH (08:43)
[2019-07-03] MEDS: MORPHINE 4 MG/1 ML VIAL IV PRN ×2 (10:34→16:40)
[2019-07-03 11:21] LABS: Amorphous Crystals,Urine Occasional /HPF (Few); Apearance,Urine CLOUDY (Clear); Bacteria,Urine Moderate /HPF (Few); Bilirubin,Urine Negative (Negative); Blood, Urine Negative (Negative); Glucose,Urine (UA) Negative (Negative); Ketones,Urine Negative (Negative); Mucus,Urine Many /LPF (Occasional); Nitrite,Urine Negative (Negative); Protein,Urine Negative; Squamous Epithelial Cell,Urine Occasional /HPF (0-10); Urine Color Amber (Yellow); Urine Urobilinogen < 2.0 EU/DL (0.2-1.0)
[2019-07-03 11:22] LABS: Barbiturates Screen,Urine Negative (Negative); Benzodiazepines Screen,Urine Positive (Negative); Cannabinoid Screen,Urine Positive (Negative); Opiate Screen,Urine Positive (Negative); Phencyclidine Screen,Urine Negative (Negative)
[2019-07-03] MEDS ORDERED: CLORAZEPATE 3.75 MG TABLET PO PRN (14:35)
[2019-07-03] MEDS ORDERED: PROMETHAZINE 25 MG TABLET PO PRN (14:35)
[2019-07-03] MEDS ORDERED: fentaNYL 25 MCG/HR PATCH TRANSDERM SCH (15:00)
[2019-07-03] MEDS: METOCLOPRAMIDE 10 MG/10 ML UDCUP PO SCH ×2 (16:39→21:00)
[2019-07-03] MEDS: IBUPROFEN 600 MG TABLET PO SCH ×3 (16:39→20:58)
[2019-07-03] MEDS: SODIUM CHLORIDE 0.9% 1,000 ML IV SCH ×2 (20:58→21:04)
[2019-07-03] MEDS: busPIRone 5 MG TABLET PO SCH (20:59)
[2019-07-04 05:24] LABS: Calcium 9.5 MG/DL (8.5-10.1); Osmolality,Calculated 285.1 MOS/KG (273-304)
[2019-07-04] MEDS: MORPHINE 4 MG/1 ML VIAL IV PRN ×2 (08:46→14:49)
[2019-07-04] MEDS: ENOXAPARIN 40 MG/0.4 ML SYRINGE SUBCUT SCH (08:47)
[2019-07-04] MEDS: PANTOPRAZOLE 40 MG TABLET PO SCH (08:47)
[2019-07-04] MEDS: IBUPROFEN 600 MG TABLET PO SCH ×4 (08:48→20:31)
[2019-07-04] MEDS: METOCLOPRAMIDE 10 MG/10 ML UDCUP PO SCH ×5 (08:49→20:31)
[2019-07-04] MEDS: busPIRone 5 MG TABLET PO SCH ×2 (08:49→20:31)
[2019-07-04] MEDS ORDERED: predniSONE 5 MG TABLET PO SCH (09:00)
[2019-07-04] MEDS ORDERED: SERTRALINE 25 MG TABLET PO SCH (09:00)
[2019-07-04] MEDS ORDERED: cefTRIAXone 1,000 MG in SYRINGE 1 EACH IV SCH (15:30)
[2019-07-04] MEDS: SODIUM CHLORIDE 0.9% 1,000 ML IV SCH (17:38)
[2019-07-04 20:43] VITALS: BP 112/72
== END 2019-07-04 21:36 | disposition hospice, home (50) ==
LOC: EDBD → EDUNIT# → N.ED 23:44 → N.EDINP 23:44 → SUATTDRO 07-03 04:56 → N.4E 07-03 05:13
PROVIDERS: ADMIT Internal Medicine; ATTEND Internal Medicine